=== PATIENT | male | born 1990 | race African-American/Black ===

== ENCOUNTER 2016-09-30 16:36 | Emergency (ER) | payer SELFPAY ==
[~2016-09-30] VITALS: Ht 177.8 cm; Wt 81.8 kg
[~2016-09-30 16:36] MED LIST: HYDR-3533 PO
[2016-09-30 16:37] VITALS: BP 116/72; PULSE 66; RESP 16; TEMP 97.7; O2SAT 99
--- NOTE | 2016-09-30 18:52 | PD ---
HPI Chief Complaint: Flank/Kidney Pain Time Seen by Provider: 18:52 Travel History International Travel<30 days: No Contact w/Intl Traveler<30days: No Traveled to known affect area: No History of Present Illness HPI 26-year-old male resents to the emergency department for evaluation. Patient states that "my kidney stone is acting up." Patient states that he went to [facility] before the new year and was diagnosed with a kidney stone. He is uncertain if it past. He believes that it is still there. Denies nausea. States the pain is significant, sharp, and his right flank. He would also like me to evaluate a cyst on his right buttock that he noticed approximately 2 weeks ago. He states it is painful to sit on. Denies any fever or chills. No other symptoms to report this time. [facility] Social History Alcohol Use: No Tobacco Use: No Allergies-Medications (Allergen,Severity, Reaction): Coded Allergies: No Known Allergies (Unverified , 10/01/16) Reported Meds & Prescriptions Reported Meds & Active Scripts Active Flomax (Tamsulosin HCl) 0.4 Mg Cap 0.4 Mg PO HS Lortab (Hydrocodone-Acetaminophen) 5-325 Mg Tab 1-2 Tab PO Q6H PRN Cipro (Ciprofloxacin HCl) 500 Mg Tab 500 Mg PO BID 5 Days Review of Systems Except as stated in HPI: all other systems reviewed are Neg Physical Exam Narrative GENERAL: Well-nourished male patient, ambulatory and in no acute distress SKIN: Warm and dry. There is a small 2 mm pustular lesion on the right buttocks. It is not indurated. There is no fluctuance. HEAD: Atraumatic. Normocephalic. EYES: Pupils equal and round. No scleral icterus. No injection or drainage. ENT: No nasal bleeding or discharge. Mucous membranes pink and moist. NECK: Trachea midline. No JVD. CARDIOVASCULAR: Regular rate and rhythm. No murmur appreciated. RESPIRATORY: No accessory muscle use. Clear to auscultation. Breath sounds equal bilaterally. GASTROINTESTINAL: Abdomen soft, non-tender, nondistended. Hepatic and splenic margins not palpable. MUSCULOSKELETAL: No obvious deformities. No clubbing. No cyanosis. No edema. NEUROLOGICAL: Awake and alert. No obvious cranial nerve deficits. Motor grossly within normal limits. Normal speech. PSYCHIATRIC: Appropriate mood and affect; insight and judgment normal. Data Data Last Documented VS Vital Signs Date Time Temp Pulse Resp B/P Pulse Ox O2 Delivery O2 Flow Rate FiO2 09/30/16 16:37 97.7 66 16 116/72 99 Room Air Orders Complete Blood Count With Diff (09/30/16 18:48) Basic Metabolic Panel (Bmp) (09/30/16 18:48) Ua Includes Microscopic (09/30/16 18:48) Ct Abd/Pel W/O Iv Contrast (09/30/16 ) Labs Laboratory Tests Test 09/30/16 09/30/16 18:52 18:57 Urine Color YELLOW Urine Turbidity CLEAR Urine pH 5.5 Urine Specific [place] 1.023 Urine Protein TRACE mg/dL Urine Glucose (UA) NEG mg/dL Urine Ketones NEG mg/dL Urine Occult Blood SMALL Urine Nitrite NEG Urine Bilirubin NEG Urine Urobilinogen LESS THAN 2.0 MG/DL Urine Leukocyte Esterase LARGE Urine RBC 36 /hpf Urine WBC 25 /hpf Urine Squamous Epithelial 1 /hpf Cells Urine Mucus MOD /lpf Microscopic Urinalysis Comment White Blood Count 4.8 TH/MM3 Red Blood Count 4.08 MIL/MM3 Hemoglobin 12.9 GM/DL Hematocrit 38.7 % Mean Corpuscular Volume 94.7 FL Mean Corpuscular Hemoglobin 31.7 PG Mean Corpuscular Hemoglobin 33.5 % Concent Red Cell Distribution Width 11.9 % Platelet Count 199 TH/MM3 Mean Platelet Volume 8.5 FL Neutrophils (%) (Auto) 33.8 % Lymphocytes (%) (Auto) 49.8 % Monocytes (%) (Auto) 14.2 % Eosinophils (%) (Auto) 1.9 % Basophils (%) (Auto) 0.3 % Neutrophils # (Auto) 1.6 TH/MM3 Lymphocytes # (Auto) 2.4 TH/MM3 Monocytes # (Auto) 0.7 TH/MM3 Eosinophils # (Auto) 0.1 TH/MM3 Basophils # (Auto) 0.0 TH/MM3 CBC Comment DIFF FINAL Differential Comment Sodium Level 142 MEQ/L Potassium Level 4.3 MEQ/L Chloride Level 108 MEQ/L Carbon Dioxide Level 29.1 MEQ/L Anion Gap 5 MEQ/L Blood Urea Nitrogen 10 MG/DL Creatinine 0.93 MG/DL Estimat Glomerular Filtration 118 ML/MIN Rate Random Glucose 83 MG/DL Calcium Level 8.1 MG/DL MDM Medical Decision Making Medical Screen Exam Complete: Yes Emergency Medical Condition: Yes Medical Record Reviewed: Yes Differential Diagnosis Renal calculi versus UTI versus renal colic versus muscle strain versus narcotic seeking Narrative Course 26-year-old male presents to emergency department for evaluation. Patient appears without distress. His vital signs are stable. He is sitting comfortably in the bed when I come in. Workup was initiated in triage. Condition: Stable Sultana Bonner Sep 30, 2016 18:52 Sultana Bonner Sep 30, 2016 18:52
[2016-09-30 19:25] LABS: AUTOMATED NEUTROPHIL # 1.6 TH/MM3 (1.8-7.7); BASOPHIL % 0.3 % (0.0-2.0); EOSINOPHIL # 0.1 TH/MM3 (0-0.4); EOSINOPHIL % 1.9 % (0.0-4.0); HEMATOCRIT 38.7 % (39.0-51.0); HEMO FLAGS DIFF FINAL; LYMPH % 49.8 % (9.0-44.0); LYMPHOCYTE # 2.4 TH/MM3 (1.0-4.8); MEAN CELL VOLUME 94.7 FL (80.0-100.0); MEAN CORPUSCULAR HEMOGLOBIN 31.7 PG (27.0-34.0); MEAN CORPUSCULAR HGB CONC 33.5 % (32.0-36.0); MONO % 14.2 % (0.0-8.0); NEUT % 33.8 % (16.0-70.0); PLATELET COUNT 199 TH/MM3 (150-450); RED BLOOD COUNT 4.08 MIL/MM3 (4.50-5.90); RED CELL DISTRIBUTION WIDTH 11.9 % (11.6-17.2); WHITE BLOOD COUNT 4.8 TH/MM3 (4.0-11.0)
[2016-09-30 19:34] LABS: BLOOD, URINE SMALL (NEG); GLUCOSE,URINE NEG (NEG); KETONE, URINE NEG (NEG); MUCUS URINE MOD /lpf (OCC); NITRITE,URINE NEG (NEG); PH, URINE 5.5 (5.0-8.5); SQUAMOUS EPITHELIAL CELL URINE 1 /hpf (0-5); URINE COLOR YELLOW (YELLW/STRAW)
[2016-09-30 19:53] LABS: BICARBONATE 29.1 MEQ/L (21.0-32.0); POTASSIUM 4.3 MEQ/L (3.5-5.1)
--- NOTE | 2016-09-30 21:53 | RADRPT ---
EXAM DATE/TIME: 09/30/2016 20:35 [facility] COMPARISON: No previous studies available for comparison. INDICATIONS : Evaluate for calculi. ORAL CONTRAST: No oral contrast ingested. RADIATION DOSE: 9.32 CTDIvol (mGy) MEDICAL HISTORY : None SURGICAL HISTORY : None. ENCOUNTER: Initial ACUITY: 1 day PAIN SCALE: 5/10 LOCATION: Right flank TECHNIQUE: Volumetric scanning of the abdomen and pelvis was performed. Using automated exposure control and ad justment of the mA and/or kV according to patient size, radiation dose was kept as low as reasonably achievable to obtain optimal diagnostic quality images. FINDINGS: Lung bases are clear. No acute findings in the liver, spleen, adrenals or pancreas. There are bilateral renal calculi largest on the left side measuring about 13 mm inferiorly. There is a tiny 2 mm calculus upper pole left kidney and tiny 1 mm calculus lower pole right kidney. No CT fi ndings of obstructive uropathy. No bladder calculi. There is mild constipation. Calcifications are pr esent in the pelvis, probably vascular although I cannot exclude distal ureteral calculus. However, n o hydronephrosis. CONCLUSION: 1. No hydronephrosis or evidence for obstructive uropathy on CT. Calcifications are present in the pe lvis, probably vascular although cannot exclude distal ureteral calculus. Bilateral renal calculi als o present as above. There is mild to moderate constipation, especially on the right. Jaime Quarles MD on September 30, 2016 at 21:46 Board Certified Radiologist. This report was verified electronically.
== END 2016-09-30 21:32 | disposition left against medical advice (07) ==
LOC: NETRI 16:36
DX: R10.31 Right lower quadrant pain (principal); L98.8 Other specified disorders of the skin and subcutaneous tissue
CPT/HCPCS: 74176; 80048; 81001; 85025

== ENCOUNTER 2016-10-01 21:18 | Emergency (ER) | payer SELFPAY ==
[2016-10-01 21:19] VITALS: BP 122/68; PULSE 98; RESP 16; TEMP 97.7; O2SAT 97
[2016-10-01 23:03] LABS: AUTOMATED NEUTROPHIL # 2.2 TH/MM3 (1.8-7.7); BASOPHIL % 0.7 % (0.0-2.0); EOSINOPHIL % 0.7 % (0.0-4.0); HEMATOCRIT 39.2 % (39.0-51.0); HEMO FLAGS DIFF FINAL; LYMPH % 41.1 % (9.0-44.0); LYMPHOCYTE # 2.1 TH/MM3 (1.0-4.8); MEAN CELL VOLUME 95.5 FL (80.0-100.0); MEAN CORPUSCULAR HEMOGLOBIN 32.3 PG (27.0-34.0); MEAN CORPUSCULAR HGB CONC 33.8 % (32.0-36.0); MONO % 13.3 % (0.0-8.0); NEUT % 44.2 % (16.0-70.0); PLATELET COUNT 208 TH/MM3 (150-450); RED BLOOD COUNT 4.11 MIL/MM3 (4.50-5.90); RED CELL DISTRIBUTION WIDTH 11.9 % (11.6-17.2); WHITE BLOOD COUNT 5.1 TH/MM3 (4.0-11.0)
[2016-10-01 23:28] LABS: BICARBONATE 27.8 MEQ/L (21.0-32.0); POTASSIUM 3.6 MEQ/L (3.5-5.1)
[2016-10-02 02:33] LABS: BLOOD, URINE MOD (NEG); COMMENT (UR) CULT NOT INDICATED; CULTURE IF INDICATED CULT NOT INDICATED; GLUCOSE,URINE NEG (NEG); KETONE, URINE NEG (NEG); MUCUS URINE FEW /lpf (OCC); NITRITE,URINE NEG (NEG); SQUAMOUS EPITHELIAL CELL URINE <1 /hpf (0-5); URINE COLOR YELLOW (YELLW/STRAW)
[2016-10-02] MEDS ORDERED: HYDR-3533 PO (03:07)
[2016-10-02] MEDS ORDERED: TAMS5CAP PO (03:07)
[2016-10-02] MEDS ORDERED: CIPR-9 PO (03:07)
--- NOTE | 2016-10-02 03:09 | PD ---
HPI Chief Complaint: Flank/Kidney Pain Time Seen by Provider: 02:16 Travel History International Travel<30 days: No Contact w/Intl Traveler<30days: No Traveled to known affect area: No History of Present Illness HPI 26-year-old male complains of pain in the left flank rate in the left groin. He states his history kidney stones. He has follow-up with a urologist in [place] He reports mild constant pain worse with palpation. He denies fever and vomiting. He was seen here yesterday however left after triage workup was initiated before seeing a doctor. [facility] Past Medical History Medical History: Denies Significant Hx Past Surgical History Surgical History: No Previous Surgery Social History Alcohol Use: Yes (SOCIALLY) Tobacco Use: Yes Substance Use: No Allergies-Medications (Allergen,Severity, Reaction): Coded Allergies: No Known Allergies (Unverified , 10/01/16) Reported Meds & Prescriptions Reported Meds & Active Scripts Active Flomax (Tamsulosin HCl) 0.4 Mg Cap 0.4 Mg PO HS Lortab (Hydrocodone-Acetaminophen) 5-325 Mg Tab 1-2 Tab PO Q6H PRN Cipro (Ciprofloxacin HCl) 500 Mg Tab 500 Mg PO BID 5 Days Review of Systems Except as stated in HPI: all other systems reviewed are Neg Physical Exam Narrative GENERAL: Well-nourished well-developed 26-year-old male in no distress SKIN: Warm and dry. HEAD: Atraumatic. Normocephalic. EYES: Pupils equal and round. No scleral icterus. No injection or drainage. ENT: No nasal bleeding or discharge. Mucous membranes pink and moist. NECK: Trachea midline. No JVD. CARDIOVASCULAR: Regular rate and rhythm. No murmur appreciated. RESPIRATORY: No accessory muscle use. Clear to auscultation. Breath sounds equal bilaterally. GASTROINTESTINAL: Abdomen soft, non-tender, nondistended. Hepatic and splenic margins not palpable. MUSCULOSKELETAL: No obvious deformities. No clubbing. No cyanosis. No edema. NEUROLOGICAL: Awake and alert. No obvious cranial nerve deficits. Motor grossly within normal limits. Normal speech. PSYCHIATRIC: Appropriate mood and affect; insight and judgment normal. Data Data Last Documented VS Vital Signs Date Time Temp Pulse Resp B/P Pulse Ox O2 Delivery O2 Flow Rate FiO2 10/02/16 03:38 98.4 60 18 109/56 100 Room Air Vital signs reviewed Orders Complete Blood Count With Diff (10/01/16 21:48) Basic Metabolic Panel (Bmp) (10/01/16 21:48) Urinalysis - C+S If Indicated (10/01/16 21:48) Labs Laboratory Tests Test 10/01/16 10/02/16 22:30 02:00 White Blood Count 5.1 TH/MM3 Red Blood Count 4.11 MIL/MM3 Hemoglobin 13.3 GM/DL Hematocrit 39.2 % Mean Corpuscular Volume 95.5 FL Mean Corpuscular Hemoglobin 32.3 PG Mean Corpuscular Hemoglobin 33.8 % Concent Red Cell Distribution Width 11.9 % Platelet Count 208 TH/MM3 Mean Platelet Volume 8.7 FL Neutrophils (%) (Auto) 44.2 % Lymphocytes (%) (Auto) 41.1 % Monocytes (%) (Auto) 13.3 % Eosinophils (%) (Auto) 0.7 % Basophils (%) (Auto) 0.7 % Neutrophils # (Auto) 2.2 TH/MM3 Lymphocytes # (Auto) 2.1 TH/MM3 Monocytes # (Auto) 0.7 TH/MM3 Eosinophils # (Auto) 0.0 TH/MM3 Basophils # (Auto) 0.0 TH/MM3 CBC Comment DIFF FINAL Differential Comment Sodium Level 141 MEQ/L Potassium Level 3.6 MEQ/L Chloride Level 107 MEQ/L Carbon Dioxide Level 27.8 MEQ/L Anion Gap 6 MEQ/L Blood Urea Nitrogen 10 MG/DL Creatinine 0.98 MG/DL Estimat Glomerular Filtration 111 ML/MIN Rate Random Glucose 79 MG/DL Calcium Level 8.6 MG/DL Urine Color YELLOW Urine Turbidity CLEAR Urine pH 6.0 Urine Specific [place] 1.019 Urine Protein TRACE mg/dL Urine Glucose (UA) NEG mg/dL Urine Ketones NEG mg/dL Urine Occult Blood MOD Urine Nitrite NEG Urine Bilirubin NEG Urine Urobilinogen LESS THAN 2.0 MG/DL Urine Leukocyte Esterase MOD Urine RBC 100 /hpf Urine WBC 20 /hpf Urine Squamous Epithelial <1 /hpf Cells Urine Mucus FEW /lpf Microscopic Urinalysis Comment CULT NOT INDICATED MDM Medical Decision Making Medical Screen Exam Complete: Yes Emergency Medical Condition: Yes Medical Record Reviewed: Yes Differential Diagnosis Constipation, Gastritis, Acute Cholecystitis, Biliary Colic, Pancreatitis, [place] , Hepatitis, Bowel Obstruction, Cystitis, Mesenteric Ischemia, AAA, Appendicitis , Renal Stone/Hydronephrosis, GERD, perforated viscous Narrative Course CBC & BMP Diagram 10/01/16 22:30 Leukocyte esterase with wbc's and rbc's CT from yesterday shows no hydronephrosis F/u with urology. Prescriptions as below. Diagnosis Primary Impression: Left flank pain Additional Impression: Hematuria Referrals: Irwin Gamboa DO 2 days Additional Instructions: You have a choice when it comes to health care, and we are glad that you chose [facility]. Hopefully, we have met your expectations on today's visit. You are welcome to return to [facility] at any time, as we are committed to meeting the health care needs of our community. Med/Other Pt SpecificInfo: Prescription(s) given Scripts Tamsulosin (Flomax)0.4 Mg Cap0.4 Mg PO HS #5 CAP Ref 0 Prov:Saurabh Mckee MD 10/02/16 Hydrocodone-Acetaminophen (Lortab)5-325 Mg Tab1-2 Tab PO Q6H PRN (PAIN SCALE 6 TO 10) #15 TAB Ref 0 Prov:Saurabh Mckee MD 10/02/16 Ciprofloxacin (Cipro)500 Mg Pur965 Mg PO BID 5 Days Ref 0 Prov:Saurabh Mckee MD 10/02/16 Disposition: 01 DISCHARGE HOME Condition: Stable Saurabh Mckee MD Oct 02, 2016 03:09
[2016-10-02 03:38] VITALS: BP 109/56; PULSE 60; RESP 18; TEMP 98.4; O2SAT 100
== END 2016-10-02 03:44 | disposition home or self-care (01) ==
LOC: NEPC 21:18
DX: R10.32 Left lower quadrant pain (principal); R31.9 Hematuria, unspecified; Z72.0 Tobacco use
CPT/HCPCS: 80048; 81001; 85025; 99284

== ENCOUNTER 2016-12-14 22:12 | Emergency (ER) | payer SELFPAY ==
[~2016-12-14] VITALS: Ht 177.8 cm; Wt 82.0 kg
[~2016-12-14 22:12] MED LIST changes: +CIPR-9 PO; +TAMS5CAP PO
[2016-12-14 22:39] VITALS: BP 114/67; PULSE 75; RESP 14; TEMP 98.4; O2SAT 99
[2016-12-14 22:42] VITALS: BP 114/67; PULSE 92; RESP 14; O2SAT 99
[2016-12-14] MEDS ORDERED: SODIUM CHLOR 0.9% 1000 ML INJ 1,000 ML IV SCH (22:47)
--- NOTE | 2016-12-14 22:50 | PD ---
HPI Chief Complaint: GI Complaint Time Seen by Provider: 22:43 Travel History International Travel<30 days: No Contact w/Intl Traveler<30days: No Traveled to known affect area: No History of Present Illness HPI This is a 26-year-old male who presents to the emergency department with 3 days of "not feeling well", with onset of nausea, vomiting and loose stools starting today, constant, severe, associated with diffuse abdominal pain. He reports he has a history of kidney stones. He does smoke marijuana "as much as he can". He denies alcohol use. PFS Past Medical History Medical History: Denies Significant Hx Past Surgical History Surgical History: No Previous Surgery Social History Alcohol Use: Yes (SOCIALLY) Tobacco Use: Yes Substance Use: Yes (MARIJUANA DAILY) Allergies-Medications (Allergen,Severity, Reaction): Coded Allergies: No Known Allergies (Unverified , 12/14/16) Reported Meds & Prescriptions Reported Meds & Active Scripts Active No Active Prescriptions or Reported Medications Review of Systems Except as stated in HPI: all other systems reviewed are Neg Physical Exam Narrative GENERAL: Uncomfortable appearing, actively vomiting SKIN: Diaphoretic HEAD: Atraumatic. Normocephalic. EYES: Pupils equal and round. No injection or drainage. ENT: Moist mucous membranes NECK: Trachea midline. CARDIOVASCULAR: Regular rate and rhythm. No murmur appreciated. RESPIRATORY: Clear to auscultation. Breath sounds equal bilaterally. GASTROINTESTINAL: Abdomen soft, diffusely tender to palpation with no rebound or guarding. MUSCULOSKELETAL: No obvious deformities. NEUROLOGICAL: Awake and alert. No obvious cranial nerve deficits. Moving all extremities. PSYCHIATRIC: Appropriate mood and affect; insight and judgment normal. Data Data Last Documented VS Vital Signs Date Time Temp Pulse Resp B/P Pulse Ox O2 Delivery O2 Flow Rate FiO2 12/14/16 22:42 92 14 114/67 99 Room Air 12/14/16 22:39 98.4 Orders Complete Blood Count With Diff (12/14/16 22:47) Comprehensive Metabolic Panel (12/14/16 22:47) Lipase (12/14/16 22:47) Urinalysis - C+S If Indicated (12/14/16 22:47) Ct Abd/Pel W Iv Contrast(Rout) (12/14/16 22:47) Iv Access Insert/Monitor (12/14/16 22:47) Ecg Monitoring (12/14/16 22:47) Oximetry (12/14/16 22:47) Ondansetron Inj (Zofran Inj) (12/14/16 23:00) Sodium Chlor 0.9% 1000 Ml Inj (Ns 1000 M (12/14/16 22:47) Sodium Chloride 0.9% Flush (Ns Flush) (12/14/16 23:00) Metoclopramide Inj (Reglan Inj) (12/14/16 23:00) Iohexol 350 Inj (Omnipaque 350 Inj) (12/15/16 00:01) Labs Laboratory Tests Test 12/14/16 23:10 White Blood Count 6.7 TH/MM3 Red Blood Count 4.30 MIL/MM3 Hemoglobin 13.7 GM/DL Hematocrit 40.8 % Mean Corpuscular Volume 94.9 FL Mean Corpuscular Hemoglobin 31.8 PG Mean Corpuscular Hemoglobin 33.5 % Concent Red Cell Distribution Width 11.9 % Platelet Count 213 TH/MM3 Mean Platelet Volume 8.8 FL Neutrophils (%) (Auto) 73.5 % Lymphocytes (%) (Auto) 14.8 % Monocytes (%) (Auto) 11.1 % Eosinophils (%) (Auto) 0.2 % Basophils (%) (Auto) 0.4 % Neutrophils # (Auto) 4.9 TH/MM3 Lymphocytes # (Auto) 1.0 TH/MM3 Monocytes # (Auto) 0.7 TH/MM3 Eosinophils # (Auto) 0.0 TH/MM3 Basophils # (Auto) 0.0 TH/MM3 CBC Comment DIFF FINAL Differential Comment Sodium Level 140 MEQ/L Potassium Level 3.7 MEQ/L Chloride Level 107 MEQ/L Carbon Dioxide Level 24.8 MEQ/L Anion Gap 8 MEQ/L Blood Urea Nitrogen 11 MG/DL Creatinine 0.85 MG/DL Estimat Glomerular Filtration 131 ML/MIN Rate Random Glucose 91 MG/DL Calcium Level 7.7 MG/DL Total Bilirubin 1.2 MG/DL Aspartate Amino Transf 19 U/L (AST/SGOT) Alanine Aminotransferase 20 U/L (ALT/SGPT) Alkaline Phosphatase 63 U/L Total Protein 6.7 GM/DL Albumin 3.7 GM/DL Lipase 84 U/L MDM Medical Decision Making Medical Screen Exam Complete: Yes Emergency Medical Condition: Yes Interpretation(s) Afebrile, no tachycardia, normotensive No leukocytosis Electrolytes are reassuring Lipase is normal CT abdomen and pelvis: Increasing density adjacent to the pancreas Differential Diagnosis Acute pancreatitis, cannabis hyperemesis syndrome, gastroenteritis, cyclic vomiting syndrome Narrative Course This is a 26-year-old male who presents to the emergency department with nausea , vomiting and loose stools. He was placed in a monitor and an IV was established. He was given Zofran, Reglan and IV hydration. Labs were obtained which were all reassuring. CT abdomen and pelvis demonstrates prominence of the pancreas. He was able to drink fluids without difficulty and feels much better on reassessment. Patient will be discharged home with antiemetics. I suspect he has cannabis hyperemesis syndrome but he was informed of the CT findings and asked to follow up with his primary care physician regarding them. Diagnosis Primary Impression: Vomiting Qualified Code: R11.2 - Non-intractable vomiting with nausea, unspecified vomiting type Patient Instructions: General Instructions Additional Instructions: If you develop severe or worsening abdominal pain, fever>100.4, persistent vomiting or inability to eat or drink return to the emergency department immediately. Follow up with your primary care physician in 1-2 days for a check-up. You have very prominent pancreas on your CT scan. This should be followed up by your primary care physician Med/Other Pt SpecificInfo: Prescription(s) given Scripts Ondansetron Odt (Zofran Odt)4 Mg Tab4 Mg SL Q6HR PRN (Nausea/Vomiting) #15 TAB Prov:Maricarmen Chan MD 12/15/16 Disposition: 01 DISCHARGE HOME Condition: Stable Maricarmen Chan MD Dec 14, 2016 22:50
[2016-12-14] MEDS ORDERED: METOCLOPRAMIDE HCL 10 MG/2 ML VIAL IV PUSH ONE (23:00)
[2016-12-14] MEDS ORDERED: SODIUM CHLORIDE 0.9% FLUSH 10 ML FLUSH IV FLUSH PRN (23:00)
[2016-12-14] MEDS ORDERED: ONDANSETRON HCL 4 MG/2 ML VIAL IVP ONE (23:00)
[2016-12-14 23:28] LABS: AUTOMATED NEUTROPHIL # 4.9 TH/MM3 (1.8-7.7); BASOPHIL % 0.4 % (0.0-2.0); EOSINOPHIL % 0.2 % (0.0-4.0); HEMATOCRIT 40.8 % (39.0-51.0); HEMO FLAGS DIFF FINAL; LYMPH % 14.8 % (9.0-44.0); MEAN CELL VOLUME 94.9 FL (80.0-100.0); MEAN CORPUSCULAR HEMOGLOBIN 31.8 PG (27.0-34.0); MEAN CORPUSCULAR HGB CONC 33.5 % (32.0-36.0); MONO % 11.1 % (0.0-8.0); NEUT % 73.5 % (16.0-70.0); PLATELET COUNT 213 TH/MM3 (150-450); RED CELL DISTRIBUTION WIDTH 11.9 % (11.6-17.2); WHITE BLOOD COUNT 6.7 TH/MM3 (4.0-11.0)
[2016-12-14 23:47] LABS: ALT (GPT) 20 U/L (12-78); ANION GAP 8 MEQ/L (5-15); AST (GOT) 19 U/L (15-37); BICARBONATE 24.8 MEQ/L (21.0-32.0); BLOOD UREA NITROGEN 11 MG/DL (7-18); CHLORIDE 107 MEQ/L (98-107); GLOMERULAR FILTRATION RATE 131 ML/MIN (>89); POTASSIUM 3.7 MEQ/L (3.5-5.1); SODIUM (NA) 140 MEQ/L (136-145)
[2016-12-14 23:49] LABS: ALKALINE PHOSPHATASE 63 U/L (45-117); TOTAL BILIRUBIN ADULT 1.2 MG/DL (0.2-1.0)
[2016-12-15] MEDS ORDERED: IOHEXOL 350 MG/ML 10 ML VIAL (for RAD DIAG) IV ONE (00:01)
--- NOTE | 2016-12-15 00:42 | RADRPT ---
EXAM DATE/TIME: 12/14/2016 23:59 [facility] COMPARISON: No previous studies available for comparison. INDICATIONS : Diffuse abdominal pain with nausea and vomiting x3 days. IV CONTRAST: 97 cc Omnipaque 350 (iohexol) IV ORAL CONTRAST: No oral contrast ingested. RADIATION DOSE: 4.54 CTDIvol (mGy) MEDICAL HISTORY : None SURGICAL HISTORY : None. ENCOUNTER: Initial ACUITY: 3 days PAIN SCALE: 6/10 LOCATION: Bilateral abdomen TECHNIQUE: Volumetric scanning of the abdomen and pelvis was performed. Using automated exposure control and ad justment of the mA and/or kV according to patient size, radiation dose was kept as low as reasonably achievable to obtain optimal diagnostic quality images. FINDINGS: LOWER LUNGS: The visualized lower lungs are clear. LIVER: Homogeneous density without lesion. There is no dilation of the biliary tree. No calcified gallston es. SPLEEN: Normal size without lesion. PANCREAS: The pancreas appears prominent and somewhat ill-defined. There does appear to be increased density wi thin the fat seen posterior to the pancreas in the retroperitoneum. No focal fluid collection is seen . KIDNEYS: Normal in size and shape. Several nonobstructing left renal stones measuring up to 1.1 cm are seen. There is a tiny 2-3 mm nonobstructing right renal stone. There is no mass or hydronephrosis. ADRENAL GLANDS: Within normal limits. VASCULAR: There is no aortic aneurysm. BOWEL/MESENTERY: The stomach, small bowel, and colon demonstrate no acute abnormality. There is no free intraperitone al air or fluid. ABDOMINAL WALL: Within normal limits. RETROPERITONEUM: There is no lymphadenopathy. BLADDER: No wall thickening or mass. Calcifications are seen in the pelvis likely related to phleboliths. REPRODUCTIVE: Within normal limits. INGUINAL: There is no lymphadenopathy or hernia. MUSCULOSKELETAL: Within normal limits for patient age. CONCLUSION: 1. The pancreas appears somewhat prominent with increased density in the peritoneal fat adjacent to t he pancreas raising the possibility of pancreatitis. 2. Nonobstructing renal stones seen bilaterally. Onesimo Perez MD on December 15, 2016 at 0:36 Board Certified Radiologist. This report was verified electronically.
[2016-12-15] MEDS ORDERED: ZOFR4TAB3 SL (00:55)
== END 2016-12-15 01:42 | disposition home or self-care (01) ==
LOC: NEPE 22:12
DX: R11.2 Nausea with vomiting, unspecified (principal); F12.10 Cannabis abuse, uncomplicated
CPT/HCPCS: 74177; 80053; 83690; 85025; 96361; 96374; 96375; 99284; J2405; J2765; J7030; Q9967

== ENCOUNTER 2017-02-01 11:20 | Emergency (ER) | payer SELFPAY ==
[~2017-02-01] VITALS: Ht 177.8 cm; Wt 80.0 kg
[~2017-02-01 11:20] MED LIST changes: -CIPR-9 PO; -HYDR-3533 PO; -TAMS5CAP PO; +ZOFR4TAB3 SL
[2017-02-01 11:25] VITALS: BP 125/68; PULSE 87; RESP 17; TEMP 98.3; O2SAT 97
--- NOTE | 2017-02-01 11:35 | PD ---
HPI . sinus headache/sinus pressure for several months Chief Complaint: Headache Time Seen by Provider: 11:35 Travel History International Travel<30 days: No Contact w/Intl Traveler<30days: No Traveled to known affect area: No History of Present Illness HPI 26-year-old male with no significant past medical history here with complaints of possible sinus headache and sinus pressure for the past several months. Patient says that occasionally he experiences severe headaches that cause him to have one episode of vomiting. As the day progresses by 11 AM the headache is gone and he feels better. He thinks that he may be exposed to mold in his house. He has visited the emergency room intermittently and tells me "No one has stopped to take a look into my ears." He denies any fever, chills, nausea, vomiting, loss of vision, diminished strength, numbness or tingling. He is accompanied by his mother. He recently moved from [place] and did not have these issues when he was living there. [facility] Social History Alcohol Use: Yes (SOCIALLY) Tobacco Use: Yes Substance Use: Yes (MARIJUANA DAILY) Allergies-Medications (Allergen,Severity, Reaction): Coded Allergies: No Known Allergies (Unverified , 12/14/16) Reported Meds & Prescriptions Reported Meds & Active Scripts Active Flonase Nasal [place] (Fluticasone Nasal [place]) 50 Mcg/Act [place] 50 Mcg EACH NARE BID Augmentin (Amoxicillin-Clavulanate) 875-125 Mg Tab 1 Tab PO BID 10 Days Zofran Odt (Ondansetron Odt) 4 Mg Tab 4 Mg SL Q6HR PRN Review of Systems General / Constitutional: No: Fever Eyes: No: Visual changes HENT: Positive: Headaches, Congestion Cardiovascular: No: Chest Pain or Discomfort Respiratory: No: Shortness of Breath Gastrointestinal: No: Abdominal Pain Genitourinary: No: Dysuria Musculoskeletal: No: Pain Skin: No Rash Neurologic: No: Weakness Psychiatric: No: Depression Endocrine: No: Polydipsia Hematologic/Lymphatic: No: Easy Bruising Physical Exam Narrative GENERAL: AAO x 3, no acute distress, Well-nourished, well-developed patient. SKIN: Warm and dry. No visible rashes or bruising. HEAD: Normocephalic and atraumatic. EYES: No scleral icterus. No injection or drainage. EOM intact, PERRLA ENT: No nasal drainage noted. Mucous membranes pink. Airway patent. Bilateral TMs with clear effusions, right greater than left. Frontal and maxillary sinus tenderness worse on the right side. Otherwise no oropharynx abnormality. NECK: Supple, trachea midline. No JVD. No lymphadenopathy CARDIOVASCULAR: Regular rate and rhythm without murmurs, gallops, or rubs. RESPIRATORY: Breath sounds equal bilaterally. No accessory muscle use. No rhonchi or rales. GASTROINTESTINAL: Abdomen soft, non-tender, nondistended. Normoactive bowel sounds EXTREMITIES: No cyanosis or edema. NEURO: CN II through XII intact, rattling machine tender strength equal bilaterally. Strength in upper and lower extremities normal. no focal deficits BACK: Nontender without obvious deformity. No CVA tenderness. PSYCH: AAO x 3, normal affect. Data Data Last Documented VS Vital Signs Date Time Temp Pulse Resp B/P Pulse Ox O2 Delivery O2 Flow Rate FiO2 02/01/17 11:36 16 100 Room Air 02/01/17 11:25 98.3 87 125/68 MDM Medical Decision Making Medical Screen Exam Complete: Yes Emergency Medical Condition: Yes Medical Record Reviewed: Yes Differential Diagnosis sinusitis, allergic rhinitis, sinus headaches, migraines Narrative Course This is a 26-year-old male presenting with complaints of headache. He does not have any vomiting today. Upon further discussion he seems to have sinus problems. An examination was done and he does have frontal and maxillary sinus tenderness. His ears are demonstrating b/l clear effusions. His findings are consistent with acute sinusitis and allergic rhinitis. Discussed this with him and explained that often times pollen is a major contributor. Recommend a course of Augmentin and Flonase daily. He will need follow-up with his primary care provider and I recommended [facility]. Discussed this with him and his mother and they are both happy with treatment plan and recommendations. Patient verbalized understanding of instructions, questions were answered, and thanked me for their care. I advised them if their condition worsens, please return to the nearest emergency room for further care. Diagnosis Primary Impression: Acute sinusitis Qualified Code: J01.91 - Acute recurrent sinusitis, unspecified location Additional Impressions: Sinus headache Allergic rhinitis Qualified Code: J30.9 - Allergic rhinitis, unspecified allergic rhinitis trigger, unspecified rhinitis seasonality Referrals: [facility] Patient Instructions: General Instructions, Sinusitis (ED) Additional Instructions: Please return to emergency department if your symptoms return or worsen. Follow up with your primary care provider. Take medications as prescribed. You can try over the counter Zyrtec or Falguni daily. You can use Tylenol or Motrin as needed for headaches. Med/Other Pt SpecificInfo: Prescription(s) given Scripts Fluticasone Nasal [place] (Flonase Nasal [place])50 Mcg/Act Spray50 Mcg EACH NARE BID #1 BOTTLE Ref 0 Prov:Kamila Gr MD 02/01/17 Amoxicillin-Clavulanate (Augmentin)875-125 Mg Tab1 Tab PO BID 10 Days Ref 0 Prov:Kamila Gr MD 02/01/17 Disposition: 01 DISCHARGE HOME Condition: Stable Rayne Erazo February 01, 2017 11:35
[2017-02-01] MEDS ORDERED: FLUT1SPR5 EACH NARE (11:45)
[2017-02-01] MEDS ORDERED: AUGM875T3 PO (11:45)
== END 2017-02-01 11:59 | disposition home or self-care (01) ==
LOC: NEPD 11:20
DX: J01.91 Acute recurrent sinusitis, unspecified (principal); R51 Headache; J30.9 Allergic rhinitis, unspecified; Z72.0 Tobacco use
CPT/HCPCS: 99283

== ENCOUNTER 2017-02-16 07:55 | Emergency (ER) | payer SELFPAY ==
[~2017-02-16] VITALS: Ht 182.9 cm; Wt 72.0 kg
[~2017-02-16 07:55] MED LIST changes: +AUGM875T3 PO; +FLUT1SPR5 EACH NARE
[2017-02-16 07:57] VITALS: BP 129/82; PULSE 78; RESP 15; TEMP 98.2; O2SAT 99
--- NOTE | 2017-02-16 08:55 | PD ---
HPI Chief Complaint: ENT Complaint Time Seen by Provider: 08:54 Travel History International Travel<30 days: No Contact w/Intl Traveler<30days: No Traveled to known affect area: No History of Present Illness HPI 26-year-old male presents emergency Department with complaint of frontal headache that has been bothering him for 2-3 months. He says it alternates sides and this is left-sided at this time. Gradual onset 2-3 months ago. Describes it as a throbbing sensation. Negative history of headaches. Reports photophobia. Reports vomiting in the mornings. Was seen here on February 01 and was given a restriction for antibiotics that he finished on Friday for acute sinusitis. Patient denies nasal congestion; says his sinuses feel dry. Denies fever. Denies focal deficits or weakness. Denies change in vision. Has tried multiple [id number] medications with no relief of symptoms. No known relieving factors. No other modifying factors or associated signs and symptoms. PFSH Past Medical History Medical History: Denies Significant Hx Diminished Hearing: No Immunizations Current: No Tetanus Vaccination: Unknown Influenza Vaccination: No Past Surgical History Surgical History: No Previous Surgery Social History Alcohol Use: Yes (SOCIALLY) Tobacco Use: Yes Substance Use: Yes (MARIJUANA DAILY) Allergies-Medications (Allergen,Severity, Reaction): Coded Allergies: No Known Allergies (Unverified , 02/16/17) Reported Meds & Prescriptions Reported Meds & Active Scripts Active Zofran (Ondansetron HCl) 4 Mg Tab 4 Mg PO Q8HR PRN Ibuprofen 800 Mg Tab 800 Mg PO Q6HR PRN Flonase Nasal [place] (Fluticasone Nasal [place]) 50 Mcg/Act [place] 50 Mcg EACH NARE BID Zofran Odt (Ondansetron Odt) 4 Mg Tab 4 Mg SL Q6HR PRN Review of Systems Except as stated in HPI: all other systems reviewed are Neg Physical Exam Narrative GENERAL: Well-nourished, well-developed patient, in no acute distress; afebrile , nontoxic-appearing; patient laying in a quiet, dark room with ice covered with a washcloth SKIN: Warm and dry. HEAD: Atraumatic. Normocephalic. No facial droop noted. Tongue midline. EYES: Pupils equal and round at 3 mm with brisk reaction. No scleral icterus. No injection or drainage. PERRLA. EOMI. ENT: Mucosa pink and moist. No erythema or exudates. No uvular edema. No uvular , palatal, or tonsillar deviation. Airway patent. EARS: Bilateral pinnae and external canals appear within normal limits. Bilateral tympanic membranes without erythema, dullness or perforation. NECK: Trachea midline. No lymphadenopathy. CARDIOVASCULAR: Regular rate and rhythm. No murmur appreciated. RESPIRATORY: No accessory muscle use. Clear to auscultation. Breath sounds equal bilaterally. GASTROINTESTINAL: Abdomen soft, non-tender, nondistended. Hepatic and splenic margins not palpable. Bowel sounds are active 4 quadrants. MUSCULOSKELETAL: No obvious deformities. No clubbing. No cyanosis. No edema. NEUROLOGICAL: Awake and alert. Oriented 3. No obvious cranial nerve deficits. Motor grossly within normal limits. Normal speech. No ataxia. No mid -line drift. Moves all extremities. 5/5 strength to all extremities. PSYCHIATRIC: Appropriate mood and affect; insight and judgment normal. Data Data Last Documented VS Vital Signs Date Time Temp Pulse Resp B/P Pulse Ox O2 Delivery O2 Flow Rate FiO2 02/16/17 10:07 66 18 118/69 100 02/16/17 07:[address] Brain W/O Iv Contrast(Rout) (02/16/17 ) Ondansetron Odt (Zofran Odt) (02/16/17 09:00) Diphenhydramine (Benadryl) (02/16/17 09:00) Ketorolac Inj (Toradol Inj) (02/16/17 09:30) MDM Medical Decision Making Medical Screen Exam Complete: Yes Emergency Medical Condition: Yes Medical Record Reviewed: Yes Differential Diagnosis Migraine headache, allergic rhinitis, tension headache, headache Narrative Course 26-year-old male presents to emergency department with complaint of continued frontal headache. He was seen on February 01 and diagnosed with sinusitis and just finished his antibiotics on Friday was no change in symptoms. Suspecting patient is having migraine headaches. Neuro exam is unremarkable. Patient does report he has been vomiting every morning. He denies history of headaches. Benadryl, Zofran ordered. CT head ordered. 925: CT head . Toradol ordered. 36: Patient reports improvement in symptoms prior to Toradol administration. Rates headache 5/10 down from a 06/17. Toradol will be administered and the patient will be discharged home. Ibuprofen and Zofran prescribed for home. Instructed patient to follow up with primary care and neurology. [facility] information sheet provided. Patient verbalizes understanding and agreement with treatment plan. Patient is medically cleared and stable for discharge. Discussed reasons to return to the emergency department. Instructed patient to follow up with primary care provider. Patient agrees with treatment plan. The patients vital signs are stable and the patient is stable for outpatient follow-up and treatment. Patient discharged home, stable and in no acute distress. Diagnosis Primary Impression: Headache Qualified Code: R51 - Nonintractable headache, unspecified chronicity pattern , unspecified headache type Referrals: [facility] Primary Care Physician Patient Instructions: General Headache (ED), General Instructions Additional Instructions: Ibuprofen or Tylenol as directed and as needed to reduce headache Get plenty of rest: do not over sleep rest and relax in a dark, quiet room as needed Place an ice pack on the back of her neck to reduce head pain as needed Keep a headache diary of what triggers her headaches and what treatment is most effective Avoid identifiable triggers Avoid smoking, alcohol and caffeine consumption Reduce stress Follow-up with primary care provider within 1-2 days Follow-up with neurology Return immediately to the emergency department with worsening symptoms Med/Other Pt SpecificInfo: Prescription(s) given Scripts Ondansetron (Zofran)4 Mg Tab4 Mg PO Q8HR PRN (NAUSEA OR VOMITING) #15 TAB Ref 0 Prov:Annita Seay 02/16/17 Ibuprofen 800 Mg Qfx179 Mg PO Q6HR PRN (PAIN) #30 TAB Ref 0 Prov:Annita Seay 02/16/17 Disposition: 01 DISCHARGE HOME Condition: Stable Annita Seay Feb 16, 2017 08:55
[2017-02-16] MEDS ORDERED: ONDANSETRON ODT 4 MG TAB PO ONE (09:00)
[2017-02-16] MEDS ORDERED: diphenhydrAMINE HCL 50 MG CAP PO ONE (09:00)
--- NOTE | 2017-02-16 09:19 | RADRPT ---
EXAM DATE/TIME: 02/16/2017 09:03 [facility] COMPARISON: No previous studies available for comparison. INDICATIONS : Sinus pressure and headache. RADIATION DOSE: 40.74 CTDIvol (mGy) Numerous images were repeated secondary to motion. MEDICAL HISTORY : None SURGICAL HISTORY : None. ENCOUNTER: Initial ACUITY: 1 day PAIN SCALE: 5/10 LOCATION: Bilateral facial TECHNIQUE: Multiple contiguous axial images were obtained of the head. Using automated exposure control and adj ustment of the mA and/or kV according to patient size, radiation dose was kept as low as reasonably a chievable to obtain optimal diagnostic quality images. FINDINGS: CEREBRUM: The ventricles are normal for age. No evidence of midline shift, mass lesion, hemorrhage or acute in farction. No extra-axial fluid collections are seen. POSTERIOR FOSSA: The cerebellum and brainstem are intact. The 4th ventricle is midline. The cerebellopontine angle i s unremarkable. EXTRACRANIAL: The visualized portion of the orbits is intact. SKULL: The calvaria is intact. No evidence of skull fracture. CONCLUSION: Negative for acute process. Cedric Johnson MD FACR on February 16, 2017 at 9:17 Board Certified Radiologist. This report was verified electronically.
[2017-02-16] MEDS ORDERED: KETOROLAC TROMETHAMINE 60 MG/2 ML (IM) VIAL IM ONE (09:30)
[2017-02-16] MEDS ORDERED: ZOFR4TAB PO (09:31)
[2017-02-16] MEDS ORDERED: IBUP800T23 PO (09:31)
[2017-02-16 10:07] VITALS: BP 118/69
== END 2017-02-16 10:10 | disposition home or self-care (01) ==
LOC: NEPD 07:55
DX: R51 Headache (principal); R11.10 Vomiting, unspecified; Z72.0 Tobacco use
CPT/HCPCS: 70450; 96372; 99285; J1885; Q0163

== ENCOUNTER 2017-07-17 17:31 | Emergency (ER) | payer SELFPAY ==
[~2017-07-17 17:31] MED LIST changes: -AUGM875T3 PO; +IBUP1TAB7 PO; +ZOFR4TAB PO
[2017-07-17 17:33] VITALS: BP 124/67; PULSE 75; RESP 12; TEMP 98.6; O2SAT 98
[2017-07-17] MEDS ORDERED: BACT800T5 PO (20:58)
[2017-07-17] MEDS ORDERED: CEPH-460 PO (20:58)
--- NOTE | 2017-07-17 20:59 | PD ---
HPI Chief Complaint: Skin Problem Time Seen by Provider: 20:45 Travel History International Travel<30 days: No Contact w/Intl Traveler<30days: No Traveled to known affect area: No History of Present Illness HPI 27-year-old black male presents ly apartment with complaints of infection to his right lower leg after being bitten by ants 3 days ago. He states that he is an area behind his right calf which has become increasing painful and swollen. Symptoms are [id number]. He has not had a tetanus shot over 5 years. No fever chills. Positive pus drainage. PFSH Past Medical History Medical History: Denies Significant Hx Diminished Hearing: No Immunizations Current: No Tetanus Vaccination: > 5 Years Past Surgical History Surgical History: No Previous Surgery Social History Alcohol Use: Yes (SOCIALLY) Tobacco Use: Yes Substance Use: Yes (MARIJUANA DAILY) Allergies-Medications (Allergen,Severity, Reaction): Coded Allergies: No Known Allergies (Unverified Adverse Reaction, Unknown, 07/17/17) Reported Meds & Prescriptions Reported Meds & Active Scripts Active Keflex (Cephalexin) 500 Mg Capsule 500 Mg PO Q6H 7 Days Bactrim DS (Sulfamethoxazole-Trimethoprim) 800-160 Mg Tab 1 Tab PO BID Zofran (Ondansetron HCl) 4 Mg Tab 4 Mg PO Q8HR PRN Ibuprofen 800 Mg Tab 800 Mg PO Q6HR PRN Flonase Nasal [place] (Fluticasone Nasal [place]) 50 Mcg/Act [place] 50 Mcg EACH NARE BID Zofran Odt (Ondansetron Odt) 4 Mg Tab 4 Mg SL Q6HR PRN Review of Systems General / Constitutional: No: Fever Musculoskeletal: Positive: Edema, Pain Skin: Positive Rash, Positive Lumps Physical Exam Narrative GENERAL: This is a well-nourished, well-developed patient, in no apparent distress. SKIN: No rashes, ecchymoses or lesions. Warm and dry. HEAD: Atraumatic. Normocephalic. EYES: PERRL, EOMI, no discharge or injection. No scleral icterus. EARS: Clear NOSE: Nasal turbinates appear normal. THROAT: Mucosa pink and moist. Airway patent. NECK: Trachea midline. supple, moves head freely. LUNGS: Clear to auscultation. CV: Regular in rhythm. ABDOMEN: Soft nontender. EXT: No clubbing cyanosis. Examination of right lower extremity reveals mild erythema and edema to the right lower posterior calf where there is a central open draining abscess measuring 2 x 2 centimeters. There is indurated but not fluctuant. Positive pus discharge. Patient also has a few scattered pustular lesion from fire ant bites but they do not appear to be secondarily infected Data Data Last Documented VS Vital Signs Date Time Temp Pulse Resp B/P (MAP) Pulse Ox O2 Delivery O2 Flow Rate FiO2 07/17/17 17:33 98.6 75 12 124/67 (86) 98 Orders Orders Tetanus/Diphtheria Tox Adult (Tetanus/Di (07/17/17 21:00) Sulfamet-Trimeth Ds 800-160 Mg (Bactrim (07/17/17 21:00) Cephalexin (Keflex) (07/17/17 21:00) MDM Medical Decision Making Medical Screen Exam Complete: Yes Emergency Medical Condition: Yes Medical Record Reviewed: Yes Differential Diagnosis MDM: High Differential diagnoses: Abscess, folliculitis, cellulitis, lymphangitis, abrasion, contact dermatitis Narrative Course Patient is given Bactrim DS and Keflex 500 mg by mouth. This is right lower leg abscess Diagnosis Primary Impression: Abscess of right lower leg Patient Instructions: General Instructions Additional Instructions: Rest. Elevation. keep clean and dry. Warm compresses Daily wound care with soap, water and Neosporin. Three Advil every 6 hours. Bactrim DS and Keflex Follow-up with a primary care doctor in one week. Return to the ER for any problems. Med/Other Pt SpecificInfo: Prescription(s) given Scripts Cephalexin (Keflex) 500 Mg Capsule 500 MG PO Q6H for Infection for 7 Days, #28 CAP 0 Refills Prov: Renay Irving DO 07/17/17 Sulfamethoxazole-Trimethoprim (Bactrim DS) 800-160 Mg Tab 1 TAB PO BID for Infection, #20 TAB 0 Refills Prov: Renay Irving DO 07/17/17 Disposition: 01 DISCHARGE HOME Condition: Stable Jaime Valentin Jul 17, 2017 20:59
[2017-07-17] MEDS ORDERED: SULFAMETHOXAZOLE-TRIMETHOPRIM DS 800-160 MG TAB PO ONE (21:00)
[2017-07-17] MEDS ORDERED: TETANUS/DIPHTHERIA TOXOID ADULT 0.5 ML VIAL IM ONE (21:00)
[2017-07-17] MEDS ORDERED: CEPHALEXIN MONOHYDRATE 500 MG CAP PO ONE (21:00)
== END 2017-07-17 21:29 | disposition home or self-care (01) ==
LOC: NEPK 17:31
DX: L02.415 Cutaneous abscess of right lower limb (principal); Z72.0 Tobacco use; Z79.899 Other long term (current) drug therapy; Z23 Encounter for immunization
CPT/HCPCS: 90471; 90714

== ENCOUNTER 2017-09-05 02:17 | Emergency (ER) | payer SELFPAY ==
[~2017-09-05] VITALS: Ht 170.2 cm; Wt 72.0 kg
[~2017-09-05 02:17] MED LIST changes: +BACT800T5 PO; +CEPH-460 PO
[2017-09-05 02:18] VITALS: BP 134/85; PULSE 85; RESP 16; TEMP 99.7; O2SAT 99
[2017-09-05] MEDS ORDERED: KETOROLAC TROMETHAMINE 30 MG/ML (IVP) VIAL IV PUSH ONE (02:45)
[2017-09-05] MEDS ORDERED: ONDANSETRON HCL 4 MG/2 ML VIAL IV PUSH ONE (02:45)
[2017-09-05] MEDS ORDERED: SODIUM CHLOR 0.9% 1000 ML INJ 1,000 ML IV ONE (02:45)
--- NOTE | 2017-09-05 02:50 | PD ---
HPI Chief Complaint: GI Complaint Time Seen by Provider: 02:40 Travel History International Travel<30 days: No Contact w/Intl Traveler<30days: No Traveled to known affect area: No History of Present Illness HPI 27-year-old male complains of fever, headache, body ache, coughing congestion, nausea vomiting and abdominal pain. Patient states that symptoms started 3 days ago and got worse tonight. Patient states that headache aching headache diffuse over the head. Patient denies any visual change. Patient denies any neck pain. Patient states the cough is persistent mostly dry cough. Patient complains of chest wall pain. Patient denies any shortness of breath. Patient states that he has diffuse overall cramping tonight with nausea vomiting tonight. Patient denies any dysuria or frequency. Patient complains of body ache. 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 PFSH Past Medical History Diminished Hearing: No Immunizations Current: No Influenza Vaccination: No Past Surgical History Surgical History: No Previous Surgery Social History Alcohol Use: Yes (SOCIALLY) Tobacco Use: Yes Substance Use: Yes (MARIJUANA DAILY) Allergies-Medications (Allergen,Severity, Reaction): Coded Allergies: No Known Allergies (Unverified Adverse Reaction, Unknown, 09/05/17) Reported Meds & Prescriptions Reported Meds & Active Scripts Active Ibuprofen 800 Mg Tab 800 Mg PO Q6HR PRN Flonase Nasal [place] (Fluticasone Nasal [place]) 50 Mcg/Act [place] 50 Mcg EACH NARE BID Review of Systems General / Constitutional: Positive: Fever Eyes: No: Visual changes HENT: Positive: Headaches Cardiovascular: No: Chest Pain or Discomfort Respiratory: Positive: Cough, No: Shortness of Breath Gastrointestinal: Positive: Nausea, Vomiting, Abdominal Pain Genitourinary: No: Dysuria Musculoskeletal: No: Pain Skin: No Rash Neurologic: No: Weakness Psychiatric: No: Depression Endocrine: No: Polydipsia Hematologic/Lymphatic: No: Easy Bruising Physical Exam Narrative GENERAL: Well-nourished, well-developed patient. SKIN: Focused skin assessment warm/dry. HEAD: Normocephalic. EYES: No scleral icterus. No injection or drainage. NECK: Supple, trachea midline. No JVD or lymphadenopathy. No meningismus CARDIOVASCULAR: Regular rate and rhythm without murmurs, gallops, or rubs. RESPIRATORY: Breath sounds equal bilaterally. No accessory muscle use. GASTROINTESTINAL: Abdomen soft, nondistended. Patient has mild to moderate diffuse tenderness over the abdomen. No rebound tenderness. No mass. MUSCULOSKELETAL: No cyanosis, or edema. BACK: Nontender without obvious deformity. No CVA tenderness. Data Data Last Documented VS Vital Signs Date Time Temp Pulse Resp B/P (MAP) Pulse Ox O2 Delivery O2 Flow Rate FiO2 09/05/17 02:18 99.7 85 16 134/85 (101) 99 Room Air Orders Orders Sodium Chlor 0.9% 1000 Ml Inj (Ns 1000 M (09/05/17 02:45) Ketorolac Inj (Toradol Inj) (09/05/17 02:45) Ondansetron Inj (Zofran Inj) (09/05/17 02:45) Complete Blood Count With Diff (09/05/17 02:44) Comprehensive Metabolic Panel (09/05/17 02:44) Lipase (09/05/17 02:44) Influenzae A/B Antigen (09/05/17 02:44) Chest, Single Ap (09/05/17 02:44) Iv Access Insert/Monitor (09/05/17 02:44) Ecg Monitoring (09/05/17 02:44) Oximetry (09/05/17 02:44) Labs Laboratory Tests Test 09/05/17 02:30 White Blood Count 6.2 TH/MM3 Red Blood Count 4.29 MIL/MM3 Hemoglobin 13.9 GM/DL Hematocrit 41.1 % Mean Corpuscular Volume 95.9 FL Mean Corpuscular Hemoglobin 32.3 PG Mean Corpuscular Hemoglobin Concent 33.7 % Red Cell Distribution Width 12.1 % Platelet Count 197 TH/MM3 Mean Platelet Volume 8.5 FL Neutrophils (%) (Auto) 70.7 % Lymphocytes (%) (Auto) 14.0 % Monocytes (%) (Auto) 13.5 % Eosinophils (%) (Auto) 0.4 % Basophils (%) (Auto) 1.4 % Neutrophils # (Auto) 4.4 TH/MM3 Lymphocytes # (Auto) 0.9 TH/MM3 Monocytes # (Auto) 0.8 TH/MM3 Eosinophils # (Auto) 0.0 TH/MM3 Basophils # (Auto) 0.1 TH/MM3 CBC Comment DIFF FINAL Differential Comment Blood Urea Nitrogen 8 MG/DL Creatinine 0.96 MG/DL Random Glucose 98 MG/DL Total Protein 7.2 GM/DL Albumin 3.8 GM/DL Calcium Level 8.6 MG/DL Alkaline Phosphatase 62 U/L Aspartate Amino Transf (AST/SGOT) 20 U/L Alanine Aminotransferase (ALT/SGPT) 17 U/L Total Bilirubin 0.5 MG/DL Sodium Level 143 MEQ/L Potassium Level 3.7 MEQ/L Chloride Level 106 MEQ/L Carbon Dioxide Level 25.7 MEQ/L Anion Gap 11 MEQ/L Estimat Glomerular Filtration Rate 113 ML/MIN Lipase 97 U/L [facility] Medical Decision Making Medical Screen Exam Complete: Yes Emergency Medical Condition: Yes Interpretation(s) 3:36 AM. Chest x-ray shows no acute process. CBC within normal limit. 4:09 AM. CMP within normal limit. Influenza AB antigen negative. Differential Diagnosis Differential diagnosis including viral syndrome, migraine headache, tension headache, cluster headache, encephalitis, pneumonia, bronchitis, gastroenteritis , dehydration, electrolyte imbalance. Narrative Course 27-year-old male with headache, coughing congestion, abdominal pain, nausea vomiting and body ache. Normal saline solution 1 L IV bolus. Toradol 30 mg IV. Zofran 4 mg IV. Diagnosis Primary Impression: Viral syndrome Patient Instructions: General Instructions Additional Instructions: Clear fluid for 25 hours and advance as tolerated. Tylenol or ibuprofen for fever aching pain. Zofran as needed for nausea vomiting. Encouraged by mouth fluid. Follow-up with personal physician. Return if persistent problem or worse. Med/Other Pt SpecificInfo: Prescription(s) given Scripts Ondansetron Odt (Zofran Odt) 4 Mg Tab 4 MG SL Q6HR Y for Nausea/Vomiting, #10 TAB 0 Refills Prov: Alfonzo Hodgson MD 09/05/17 Disposition: 01 DISCHARGE HOME Condition: Stable Alfonzo Hodgson MD Sep 05, 2017 02:50
[2017-09-05 03:24] LABS: AUTOMATED NEUTROPHIL # 4.4 TH/MM3 (1.8-7.7); BASOPHIL # 0.1 TH/MM3 (0-0.2); BASOPHIL % 1.4 % (0.0-2.0); EOSINOPHIL % 0.4 % (0.0-4.0); HEMATOCRIT 41.1 % (39.0-51.0); HEMOGLOBIN 13.9 GM/DL (13.0-17.0); LYMPHOCYTE # 0.9 TH/MM3 (1.0-4.8); MEAN CELL VOLUME 95.9 FL (80.0-100.0); MEAN CORPUSCULAR HEMOGLOBIN 32.3 PG (27.0-34.0); MEAN CORPUSCULAR HGB CONC 33.7 % (32.0-36.0); MEAN PLATELET VOLUME 8.5 FL (7.0-11.0); MONO % 13.5 % (0.0-8.0); MONOCYTE # 0.8 TH/MM3 (0-0.9); NEUT % 70.7 % (16.0-70.0); PLATELET COUNT 197 TH/MM3 (150-450); RED BLOOD COUNT 4.29 MIL/MM3 (4.50-5.90); RED CELL DISTRIBUTION WIDTH 12.1 % (11.6-17.2); WHITE BLOOD COUNT 6.2 TH/MM3 (4.0-11.0)
--- NOTE | 2017-09-05 03:30 | RADRPT ---
EXAM DATE/TIME: 09/05/2017 02:52 [facility] COMPARISON: No previous studies available for comparison. INDICATIONS : Cough, cold, and flu symptoms with a fever. MEDICAL HISTORY : None. SURGICAL HISTORY : None. ENCOUNTER: Initial ACUITY: 3 days PAIN SCORE: 0/10 LOCATION: Bilateral chest FINDINGS: Single AP view of the chest. The lungs are clear. Mildly prominent cardiac silhouette.. No evidence o f pleural effusion or pneumothorax. CONCLUSION: Mildly prominent cardiac silhouette. No other acute cardiopulmonary disease ident ified. Waqas Hawthorne MD on September 05, 2017 at 3:28 Board Certified Radiologist. This report was verified electronically.
[2017-09-05 03:49] LABS: ALBUMIN 3.8 GM/DL (3.4-5.0); ALT (GPT) 17 U/L (12-78); AST (GOT) 20 U/L (15-37); BICARBONATE 25.7 MEQ/L (21.0-32.0); BLOOD UREA NITROGEN 8 MG/DL (7-18); CALCIUM 8.6 MG/DL (8.5-10.1); CHLORIDE 106 MEQ/L (98-107); CREATININE 0.96 MG/DL (0.60-1.30); GLOMERULAR FILTRATION RATE 113 ML/MIN (>89); GLUCOSE,RANDOM 98 MG/DL (74-106); LIPASE 97 U/L (73-393); SODIUM (NA) 143 MEQ/L (136-145)
[2017-09-05 03:52] LABS: ALKALINE PHOSPHATASE 62 U/L (45-117); TOTAL BILIRUBIN ADULT 0.5 MG/DL (0.2-1.0); TOTAL PROTEIN 7.2 GM/DL (6.4-8.2)
[2017-09-05] MEDS ORDERED: ZOFR4TAB3 SL (04:20)
[2017-09-05 04:40] VITALS: TEMP 99.2
== END 2017-09-05 04:41 | disposition home or self-care (01) ==
LOC: NEPC 02:17
DX: B34.9 Viral infection, unspecified (principal); Z72.0 Tobacco use
CPT/HCPCS: 71010; 80053; 83690; 85025; 87804; 96374; 96375; 99284; J1885; J2405; J7030

== ENCOUNTER 2018-01-04 11:59 | Inpatient (IN) | payer SELFPAY ==
[~2018-01-04] VITALS: Ht 182.9 cm; Wt 68.5 kg
[~2018-01-04 11:59] MED LIST changes: -BACT800T5 PO; -CEPH-460 PO; -ZOFR4TAB PO
[2018-01-04 12:04] VITALS: BP 121/81; PULSE 69; RESP 18; TEMP 97.6; O2SAT 99
[2018-01-04] MEDS ORDERED: SODIUM CHLOR 0.9% 1000 ML INJ 1,000 ML IV SCH (12:39)
--- NOTE | 2018-01-04 12:42 | PD ---
HPI Chief Complaint: GI Complaint Time Seen by Provider: 12:19 Travel History International Travel<30 days: No Contact w/Intl Traveler<30days: No Traveled to known affect area: No History of Present Illness HPI This patient complains of nausea vomiting abdominal pain. Duration 2 days. Severity is moderate. Pain is rather diffuse. He has had a similar spell like this once in his past. He denies chronic disease or illicit drug use. He is a periodic alcohol drinker. No alleviating factors. No exacerbating factors. PFSH Past Medical History Medical History: Denies Significant Hx Diminished Hearing: No Immunizations Current: No Tetanus Vaccination: < 5 Years Past Surgical History Surgical History: No Previous Surgery Social History Alcohol Use: Yes (SOCIALLY) Tobacco Use: Yes Substance Use: Yes (MARIJUANA DAILY) Allergies-Medications (Allergen,Severity, Reaction): Coded Allergies: No Known Allergies (Unverified Adverse Reaction, Unknown, 01/04/18) Reported Meds & Prescriptions Reported Meds & Active Scripts Active Review of Systems General / Constitutional: No: Fever Eyes: No: Visual changes HENT: No: Headaches Cardiovascular: No: Chest Pain or Discomfort Respiratory: No: Shortness of Breath Gastrointestinal: Positive: Nausea, Vomiting, Abdominal Pain Genitourinary: No: Dysuria Musculoskeletal: No: Pain Skin: No Rash Neurologic: No: Weakness Psychiatric: No: Depression Endocrine: No: Polydipsia Hematologic/Lymphatic: No: Easy Bruising Physical Exam Narrative GENERAL: Well-nourished, well-developed patient in no apparent distress. SKIN: Focused skin assessment reveals no rash and nodules. Skin is Warm and dry. HEAD: Atraumatic. Normocephalic. EYES: Pupils equal and round. No scleral icterus. No injection or drainage. ENT: No nasal bleeding or discharge. Mucous membranes pink and moist. NECK: Trachea midline. No JVD. CARDIOVASCULAR: Regular rate and rhythm. No murmur appreciated. RESPIRATORY: No accessory muscle use. Clear to auscultation. Breath sounds equal bilaterally. GASTROINTESTINAL: Abdomen soft, diffuse tenderness without rebound or guarding , nondistended. Hepatic and splenic margins not palpable. MUSCULOSKELETAL: No obvious deformities. No clubbing. No cyanosis. No edema. NEUROLOGICAL: Awake and alert. No obvious cranial nerve deficits. Motor grossly within normal limits. Normal speech. PSYCHIATRIC: Appropriate mood and affect; insight and judgment normal. Data Data Last Documented VS Vital Signs Date Time Temp Pulse Resp B/P (MAP) Pulse Ox O2 Delivery O2 Flow Rate FiO2 01/04/18 12:04 97.6 69 18 121/81 (94) 99 Orders Orders Complete Blood Count With Diff (01/04/18 12:39) Comprehensive Metabolic Panel (01/04/18 12:39) Lipase (01/04/18 12:39) Ct Abd/Pel W Iv Contrast(Rout) (01/04/18 12:39) Iv Access Insert/Monitor (01/04/18 12:39) NPO (01/04/18 12:39) Ondansetron Inj (Zofran Inj) (01/04/18 12:45) Sodium Chlor 0.9% 1000 Ml Inj (Ns 1000 M (01/04/18 12:39) Sodium Chloride 0.9% Flush (Ns Flush) (01/04/18 12:45) Iohexol 350 Inj (Omnipaque 350 Inj) (01/04/18 15:08) Ondansetron Inj (Zofran Inj) (01/04/18 16:30) Hydromorphone Pf Inj (Dilaudid Pf Inj) (01/04/18 16:30) Urinalysis - C+S If Indicated (01/04/18 16:26) Ciprofloxacin 400 Mg Premix (Cipro 400 M (01/04/18 16:30) Admit Order (Ed Use Only) (01/04/18 16:40) Labs Laboratory Tests Test 01/04/18 13:30 White Blood Count 7.4 TH/MM3 Red Blood Count 4.73 MIL/MM3 Hemoglobin 14.8 GM/DL Hematocrit 44.4 % Mean Corpuscular Volume 94.1 FL Mean Corpuscular Hemoglobin 31.4 PG Mean Corpuscular Hemoglobin Concent 33.4 % Red Cell Distribution Width 12.2 % Platelet Count 221 TH/MM3 Mean Platelet Volume 9.1 FL Neutrophils (%) (Auto) 88.2 % Lymphocytes (%) (Auto) 6.3 % Monocytes (%) (Auto) 5.2 % Eosinophils (%) (Auto) 0.0 % Basophils (%) (Auto) 0.3 % Neutrophils # (Auto) 6.5 TH/MM3 Lymphocytes # (Auto) 0.5 TH/MM3 Monocytes # (Auto) 0.4 TH/MM3 Eosinophils # (Auto) 0.0 TH/MM3 Basophils # (Auto) 0.0 TH/MM3 CBC Comment DIFF FINAL Differential Comment Blood Urea Nitrogen 10 MG/DL Creatinine 1.01 MG/DL Random Glucose 119 MG/DL Total Protein 8.3 GM/DL Albumin 4.4 GM/DL Calcium Level 9.4 MG/DL Alkaline Phosphatase 76 U/L Aspartate Amino Transf (AST/SGOT) 31 U/L Alanine Aminotransferase (ALT/SGPT) 43 U/L Total Bilirubin 0.6 MG/DL Sodium Level 136 MEQ/L Potassium Level 4.2 MEQ/L Chloride Level 103 MEQ/L Carbon Dioxide Level 23.6 MEQ/L Anion Gap 9 MEQ/L Estimat Glomerular Filtration Rate 107 ML/MIN Lipase 53 U/L MDM Medical Decision Making Medical Screen Exam Complete: Yes Emergency Medical Condition: Yes Medical Record Reviewed: Yes Differential Diagnosis Colitis, pancreatitis, ileus Narrative Course I have reviewed the patient's electronic medical record. Reviewed his last CAT scan which suggest the possibility of pancreatitis but this was not definitive Labs and CT ordered I gave him IV Zofran and IV fluid normal saline 1 L I reviewed the workup. He has a large left-sided kidney stone with severe hydronephrosis. This would explain his left-sided abdominal and flank pain with intractable vomiting. He is still vomiting and having a lot of pain. He will be admitted for intractable vomiting and pain from kidney stone. I spoke with urologist on- call who will be a professional employer consultant. I spoke with the residents will admit I gave a dose of antibiotics at urologist request. I have ordered urinalysis which is pending. Creatinine is normal Diagnosis Primary Impression: Intractable abdominal pain Additional Impressions: Intractable vomiting with nausea Qualified Codes: R11.2 - Nausea with vomiting, unspecified Kidney stone on left side Hydronephrosis due to obstruction of ureter Admitting Information Admitting Physician Requests: Admit Mikel Salmon MD Jan 04, 2018 12:42
[2018-01-04] MEDS ORDERED: ONDANSETRON HCL 4 MG/2 ML VIAL IVP ONE (12:45)
[2018-01-04] MEDS ORDERED: SODIUM CHLORIDE 0.9% FLUSH 10 ML FLUSH IV FLUSH PRN ×2 (12:45→17:00)
[2018-01-04 14:08] LABS: AUTOMATED NEUTROPHIL # 6.5 TH/MM3 (1.8-7.7); BASOPHIL % 0.3 % (0.0-2.0); HEMATOCRIT 44.4 % (39.0-51.0); HEMOGLOBIN 14.8 GM/DL (13.0-17.0); LYMPH % 6.3 % (9.0-44.0); LYMPHOCYTE # 0.5 TH/MM3 (1.0-4.8); MEAN CELL VOLUME 94.1 FL (80.0-100.0); MEAN CORPUSCULAR HEMOGLOBIN 31.4 PG (27.0-34.0); MEAN CORPUSCULAR HGB CONC 33.4 % (32.0-36.0); MEAN PLATELET VOLUME 9.1 FL (7.0-11.0); MONO % 5.2 % (0.0-8.0); MONOCYTE # 0.4 TH/MM3 (0-0.9); NEUT % 88.2 % (16.0-70.0); PLATELET COUNT 221 TH/MM3 (150-450); RED BLOOD COUNT 4.73 MIL/MM3 (4.50-5.90); RED CELL DISTRIBUTION WIDTH 12.2 % (11.6-17.2); WHITE BLOOD COUNT 7.4 TH/MM3 (4.0-11.0)
[2018-01-04 14:17] LABS: ALBUMIN 4.4 GM/DL (3.4-5.0); AST (GOT) 31 U/L (15-37); BICARBONATE 23.6 MEQ/L (21.0-32.0); BLOOD UREA NITROGEN 10 MG/DL (7-18); CALCIUM 9.4 MG/DL (8.5-10.1); CHLORIDE 103 MEQ/L (98-107); CREATININE 1.01 MG/DL (0.60-1.30); GLOMERULAR FILTRATION RATE 107 ML/MIN (>89); GLUCOSE,RANDOM 119 MG/DL (74-106); SODIUM (NA) 136 MEQ/L (136-145)
[2018-01-04 14:18] LABS: ALT (GPT) 43 U/L (12-78)
[2018-01-04 14:20] LABS: ALKALINE PHOSPHATASE 76 U/L (45-117); TOTAL BILIRUBIN ADULT 0.6 MG/DL (0.2-1.0); TOTAL PROTEIN 8.3 GM/DL (6.4-8.2)
[2018-01-04] MEDS ORDERED: IOHEXOL 350 MG/ML 10 ML VIAL (for RAD DIAG) IVCONTRAST ONE (15:08)
--- NOTE | 2018-01-04 15:54 | RADRPT ---
EXAM DATE/TIME: 01/04/2018 14:41 [facility] COMPARISON: CT ABDOMEN & PELVIS W CONTRAST, December 14, 2016, 23:59. INDICATIONS : Abdominal pain, vomiting. IV CONTRAST: 96 cc Omnipaque 350 (iohexol) IV ORAL CONTRAST: No oral contrast ingested. RADIATION DOSE: 6.64 CTDIvol (mGy) MEDICAL HISTORY : None SURGICAL HISTORY : None. ENCOUNTER: Initial ACUITY: 1 day PAIN SCALE: 5/10 LOCATION: Abdomen TECHNIQUE: Volumetric scanning of the abdomen and pelvis was performed. Using automated exposure control and ad justment of the mA and/or kV according to patient size, radiation dose was kept as low as reasonably achievable to obtain optimal diagnostic quality images. DICOM format image data is available electro nically for review and comparison. FINDINGS: LOWER LUNGS: The visualized lower lungs are clear. LIVER: Homogeneous density without lesion. There is no dilation of the biliary tree. No calcified gallston es. SPLEEN: Normal size without lesion. PANCREAS: Within normal limits. KIDNEYS: There is a 1.3 cm stone in the left proximal ureter just beyond the UPJ. There is moderate to severe dilatation of the left collecting system. There is a 1.1 cm nonobstructing left renal stones in the i nferior left collecting system. There is a tiny 2 mm nonobstructing right renal stone at the inferior right collecting system. ADRENAL GLANDS: Within normal limits. VASCULAR: There is no aortic aneurysm. BOWEL/MESENTERY: The stomach, small bowel, and colon demonstrate no acute abnormality. There is no free intraperitone al air or fluid. ABDOMINAL WALL: Within normal limits. RETROPERITONEUM: There is no lymphadenopathy. BLADDER: No wall thickening or mass. There are numerous calcifications seen in the pelvis likely related to ph leboliths. A distal ureteral stone is not clearly identified. REPRODUCTIVE: Within normal limits. INGUINAL: There is no lymphadenopathy or hernia. MUSCULOSKELETAL: Within normal limits for patient age. CONCLUSION: 1. 1.3 cm obstructing stone in the left proximal ureter with moderate to severe dilatation of the lef t collecting system. 2. Bilateral nonobstructing renal stones in the inferior collecting systems being larger on the left. Onesimo Perez MD on January 04, 2018 at 15:46 Board Certified Radiologist. This report was verified electronically.
[2018-01-04] MEDS ORDERED: ONDANSETRON HCL 4 MG/2 ML VIAL IV ONE (16:30)
[2018-01-04] MEDS ORDERED: CIPROFLOXACIN 400 MG PREMIX 200 ML IV ONE (16:30)
[2018-01-04] MEDS ORDERED: HYDROmorphone HCL PF 2 MG/ML VIAL IVS ONE (16:30)
[2018-01-04] MEDS ORDERED: KETOROLAC TROMETHAMINE 30 MG/ML (IVP) VIAL IV PUSH PRN (17:00)
[2018-01-04] MEDS ORDERED: ACETAMINOPHEN 325 MG TAB PO PRN (17:00)
[2018-01-04] MEDS ORDERED: NALOXONE HCL 0.4 MG/ML AMP IV PUSH PRN (17:00)
[2018-01-04] MEDS ORDERED: MORPHINE SULFATE 2 MG/ML SYRINGE IV PUSH PRN (17:00)
[2018-01-04] MEDS ORDERED: ONDANSETRON HCL 4 MG/2 ML VIAL IVP PRN (17:00)
--- NOTE | 2018-01-04 17:01 | HHI.HP ---
HPI Service Family Medicine Primary Care Physician No Primary Care Physician Admission Diagnosis intract vomiting and pain from kidney stone, severe hydronephrosis Diagnoses: International Travel<30 Days: No Contact w/Intl Traveler<30days: No Known Affected Area: No History of Present Illness 27 yo M presenting to ED with intractable nausea and vomiting. He states he starting having body aches, chills on day prior to admission. At 0330 day of admission starting having nausea and vomiting >20 times. Describes the vomitus as black. Also complaining of lower abdominal and low back pain. On day prior to admission he was working outdoors and drinking beer (6 beers total). Has a history of renal stones, last had one 4 years ago and did not undergo surgery at that time. Also endorses diarrhea for last 3 days. Denies hematuria, dysuria , foul odor to urine. Review of Systems Constitutional: COMPLAINS OF: Fever, Chills, DENIES: Weight gain, Weight loss Eyes: DENIES: Blurred vision Ears, nose, mouth, throat: DENIES: Throat pain, Running Nose Respiratory: DENIES: Cough, Wheezing, Hemoptysis Cardiovascular: DENIES: Chest pain Gastrointestinal: COMPLAINS OF: Abdominal pain, Diarrhea, Nausea, Vomiting, DENIES: Black stools, Bloody stools Genitourinary: DENIES: Urinary frequency, Hematuria, Dysuria Musculoskeletal: COMPLAINS OF: Back pain Integumentary: DENIES: Rash Hematologic/lymphatic: DENIES: Bruising, Lymphadenopathy Neurologic: DENIES: Headache Past Family Social History Past Medical History History of renal stones 4 years ago Past Surgical History None Reported Medications Reported Meds & Active Scripts Active Allergies: Coded Allergies: No Known Allergies (Unverified Adverse Reaction, Unknown, 01/04/18) Family History Stroke great grandmother Social History Lives here in [facility]. 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 Able to speak in full sentences and answer questions appropriately. SKIN: No rashes, ecchymoses. Numerous small, raised, nonerythematous nodules across patient's chest and back. HEAD: Atraumatic. Normocephalic. No temporal or scalp tenderness. EYES: Pupils equal round and reactive. Extraocular motions intact. No scleral icterus. No injection or drainage. ENT: Nose without bleeding, purulent drainage or septal hematoma. Throat without erythema, tonsillar hypertrophy or exudate. Uvula midline. Airway patent. NECK: Trachea midline. No JVD or lymphadenopathy. Supple, nontender, no meningeal signs. CARDIOVASCULAR: Regular rate and rhythm without murmurs, gallops, or rubs. RESPIRATORY: Clear to auscultation. Breath sounds equal bilaterally. No wheezes , rales, or rhonchi. GASTROINTESTINAL: Abdomen soft, nondistended. TTP in RLQ, LLQ, and suprapubic region. No hepato-splenomegaly, or palpable masses. No guarding. MUSCULOSKELETAL: Extremities without clubbing, cyanosis, or edema. No joint tenderness, effusion, or edema noted. No calf tenderness. Negative Homans sign bilaterally. No CVA tenderness. NEUROLOGICAL: Awake and alert. Cranial nerves II through XII intact. Motor and sensory grossly within normal limits. Five out of 5 muscle strength in all muscle groups. Normal speech. Laboratory Laboratory Tests Test 01/04/18 13:30 White Blood Count 7.4 Red Blood Count 4.73 Hemoglobin 14.8 Hematocrit 44.4 Mean Corpuscular Volume 94.1 Mean Corpuscular Hemoglobin 31.4 Mean Corpuscular Hemoglobin Concent 33.4 Red Cell Distribution Width 12.2 Platelet Count 221 Mean Platelet Volume 9.1 Neutrophils (%) (Auto) 88.2 Lymphocytes (%) (Auto) 6.3 Monocytes (%) (Auto) 5.2 Eosinophils (%) (Auto) 0.0 Basophils (%) (Auto) 0.3 Neutrophils # (Auto) 6.5 Lymphocytes # (Auto) 0.5 Monocytes # (Auto) 0.4 Eosinophils # (Auto) 0.0 Basophils # (Auto) 0.0 CBC Comment DIFF FINAL Differential Comment Blood Urea Nitrogen 10 Creatinine 1.01 Random Glucose 119 Total Protein 8.3 Albumin 4.4 Calcium Level 9.4 Alkaline Phosphatase 76 Aspartate Amino Transf (AST/SGOT) 31 Alanine Aminotransferase (ALT/SGPT) 43 Total Bilirubin 0.6 Sodium Level 136 Potassium Level 4.2 Chloride Level 103 Carbon Dioxide Level 23.6 Anion Gap 9 Estimat Glomerular Filtration Rate 107 Lipase 53 Result Diagram: 01/04/18 1330 01/04/18 1330 Imaging Last 48 hours Impressions Abdomen/Pelvis CT 01/04/18 1239 Signed Impressions: Service Date/Time: Thursday, January 04, 2018 14:41 - CONCLUSION: 1. 1.3 cm obstructing stone in the left proximal ureter with moderate to severe dilatation of the left collecting system. 2. Bilateral nonobstructing renal stones in the inferior collecting systems being larger on the left. MD Gabriel Noble VTE Risk Assessment Caprini VTE Risk Assessment: No/Low Risk (score <= 1) Caprini Risk Assessment Model Point Value = 1 Point Value = 2 Point Value = 3 Point Value = 5 Age 41-60 Minor surgery BMI > 25 kg/m2 Swollen legs Varicose veins or History of unexplained or recurrent spontaneous Oral contraceptives or hormone replacement Sepsis (< 1 month) Serious lung disease, including pneumonia (< 1 month) Abnormal pulmonary function Acute myocardial infarction Congestive heart failure (< 1 month) History of inflammatory bowel disease Medical patient at bed rest Age 61-74 Arthroscopic surgery Major open surgery (> 45 min) Laparoscopic surgery (> 45 min) Malignancy Confined to bed (> 72 hours) Immobilizing plaster cast Central venous access Age >= 75 History of VTE Family history of VTE Factor V Leiden Prothrombin [id number] Lupus anticoagulant Anticardiolipin antibodies Elevated serum homocysteine Heparin-induced thrombocytopenia Other congenital or acquired thrombophilia Stroke (< 1 month) Elective arthroplasty Hip, pelvis, or leg fracture Acute spinal cord injury (< 1 month) Prophylaxis Regimen Total Risk Factor Score Risk Level Prophylaxis Regimen 0-1 Low Early ambulation 2 Moderate Order ONE of the following: *Sequential Compression Device (SCD) *Heparin 5000 units SQ BID 3-4 Higher Order ONE of the following medications: *Heparin 5000 units SQ TID *Enoxaparin/Lovenox 40 mg SQ daily (WT < 150 kg, CrCl > 30 mL/min) *Enoxaparin/Lovenox 30 mg SQ daily (WT < 150 kg, CrCl > 10-29 mL/min) *Enoxaparin/Lovenox 30 mg SQ BID (WT < 150 kg, CrCl > 30 mL/min) AND/OR *Sequential Compression Device (SCD) 5 or more Highest Order ONE of the following medications: *Heparin 5000 units SQ TID (Preferred with Epidurals) *Enoxaparin/Lovenox 40 mg SQ daily (WT < 150 kg, CrCl > 30 mL/min) *Enoxaparin/Lovenox 30 mg SQ daily (WT < 150 kg, CrCl > 10-29 mL/min) *Enoxaparin/Lovenox 30 mg SQ BID (WT < 150 kg, CrCl > 30 mL/min) AND *Sequential Compression Device (SCD) Assessment and Plan Assessment and Plan 27-year-old male with history of kidney stone presenting to the ED with intractable nausea and vomiting. CT scan on admission significant for 1.3 cm obstructing stone in the left proximal ureter with moderate to severe dilation of the left collecting system. Also with bilateral nonobstructing renal stones in the inferior collecting systems. Consulting urology and admitting to the hospital with likely procedure pending Code Status Full code Discussed Condition With Dr. Sage Marshall Problem List: (1) Hydronephrosis due to obstruction of ureter ICD Codes: N13.2 - Hydronephrosis with renal and ureteral calculous obstruction Status: Acute Plan: CT scan on admission showing 1.3 cm obstructing stone in the left proximal ureter with moderate to severe dilation of the left collecting system. Also showing bilateral nonobstructing renal stones in the inferior collecting systems Consulting urology Received ciprofloxacin 1 in the ED Received 1 L bolus normal saline in the ED Making patient n.p.o. in anticipation of likely procedure, will follow urology' s recommendations (2) Intractable vomiting with nausea ICD Codes: R11.2 - Nausea with vomiting, unspecified Status: Acute Plan: Patient has had intractable vomiting over the last 24 hours Reports vomiting at least 20 times, some of which has been dark black Ordering Gastroccult to assess for a upper GI bleed Continue Zofran 4 mg IV as needed Consider adding Phenergan if he continues to have vomiting (3) Intractable abdominal pain ICD Codes: R10.9 - Unspecified abdominal pain Status: Acute Plan: Patient with significant abdominal/lower back pain secondary to obstructing renal stone Received Dilaudid 1 mg once in the ED Starting Toradol pain scale with morphine for breakthrough pain (4) FEN Plan: Received 1 L normal saline bolus in the ED, no continuous IV fluids at this time Electrolytes within normal limits, will replete as needed N.p.o. for now with anticipation of urologic procedure Low risk for DVT, no prophylaxis at this time Physician Certification 2 Midnight Certification Type: Admission for Inpatient Services Order for Inpatient Services The services are ordered in accordance with Medicare regulations or non- Medicare payer requirements, as applicable. In the case of services not specified as inpatient-only, they are appropriately provided as inpatient services in accordance with the 2-midnight benchmark. Estimated LOS (days): 2 days is the estimated time the patient will need to remain in the hospital, assuming treatment plan goals are met and no additional complications. Post-Hospital Plan: Home Problem Qualifiers (1) Intractable vomiting with nausea: Qualified Codes: R11.2 - Nausea with vomiting, unspecified Christian Lal MD R1 Jan 04, 2018 17:00
[2018-01-04 17:56] VITALS: BP 120/68; PULSE 85; RESP 18; O2SAT 99
[2018-01-04] MEDS: DOCUSATE SODIUM 50 MG/SENNA 8.6 MG TAB PO SCH (19:48)
[2018-01-04] MEDS: KETOROLAC TROMETHAMINE 30 MG/ML (IVP) VIAL IV PUSH PRN (19:48)
[2018-01-04] MEDS: SODIUM CHLORIDE 0.9% FLUSH 10 ML FLUSH IV FLUSH SCH (19:48)
[2018-01-04 20:00] VITALS: BP 121/58; PULSE 61; RESP 20; TEMP 98.1; O2SAT 95
[2018-01-05] VITALS: BP 106/51; PULSE 59; RESP 18; TEMP 98; O2SAT 98
[2018-01-05 04:00] VITALS: BP 121/61; PULSE 67; RESP 18; TEMP 98; O2SAT 100
[2018-01-05 06:28] LABS: BACTERIA, URINE RARE /hpf; BILIRUBIN, URINE NEG (NEG); BLOOD, URINE SMALL (NEG); GLUCOSE,URINE NEG (NEG); KETONE, URINE 10 mg/dL (NEG); MUCUS URINE FEW /lpf (OCC); NITRITE,URINE NEG (NEG); PH, URINE 5.5 (5.0-8.5); URINE COLOR YELLOW (YELLW/STRAW); URINE LEUKOCYTE ESTERASE SMALL (NEG); WHITE BLOOD CELL CLUMPS RARE
[2018-01-05] MEDS: SODIUM CHLOR 0.9% 1000 ML INJ 1,000 ML IV SCH ×3 (06:30→20:37)
[2018-01-05] MEDS: SODIUM CHLORIDE 0.9% FLUSH 10 ML FLUSH IV FLUSH SCH ×2 (07:19→20:50)
[2018-01-05] MEDS: KETOROLAC TROMETHAMINE 30 MG/ML (IVP) VIAL IV PUSH PRN ×2 (07:25→20:49)
[2018-01-05 07:58] LABS: AUTOMATED NEUTROPHIL # 1.5 TH/MM3 (1.8-7.7); BASOPHIL % 0.5 % (0.0-2.0); EOSINOPHIL % 0.1 % (0.0-4.0); HEMATOCRIT 41.8 % (39.0-51.0); HEMOGLOBIN 13.9 GM/DL (13.0-17.0); LYMPH % 36.6 % (9.0-44.0); LYMPHOCYTE # 1.5 TH/MM3 (1.0-4.8); MEAN CELL VOLUME 94.1 FL (80.0-100.0); MEAN CORPUSCULAR HEMOGLOBIN 31.2 PG (27.0-34.0); MEAN CORPUSCULAR HGB CONC 33.2 % (32.0-36.0); MEAN PLATELET VOLUME 9.1 FL (7.0-11.0); MONO % 24.5 % (0.0-8.0); NEUT % 38.3 % (16.0-70.0); PLATELET COUNT 207 TH/MM3 (150-450); RED BLOOD COUNT 4.44 MIL/MM3 (4.50-5.90); RED CELL DISTRIBUTION WIDTH 12.1 % (11.6-17.2)
[2018-01-05] MEDS: DOCUSATE SODIUM 50 MG/SENNA 8.6 MG TAB PO SCH ×2 (07:58→20:46)
[2018-01-05 08:00] VITALS: BP 107/59; PULSE 58; RESP 19; TEMP 98.1; O2SAT 99
[2018-01-05 08:22] LABS: BICARBONATE 26.1 MEQ/L (21.0-32.0); CALCIUM 8.6 MG/DL (8.5-10.1); CREATININE 1.07 MG/DL (0.60-1.30)
[2018-01-05] MEDS ORDERED: SODIUM CHLOR 0.9% 1000 ML INJ 1,000 ML IV ONE (09:30)
--- NOTE | 2018-01-05 09:55 | HHI.FPPN ---
Subjective Remarks No acute events overnight. Patient has not had any vomiting since admission. States his pain is improved from a 10 on admission to a 7 currently. Continues to have lower abdominal, low back pain. States he is hungry. Otherwise denies chest pain, shortness of breath. Discussion was had about the importance of hydration (Christian Lal MD R1) Objective Vitals Vital Signs Date Time Temp Pulse Resp B/P (MAP) Pulse Ox O2 Delivery O2 Flow Rate FiO2 01/05/18 08:00 98.1 58 19 107/59 (75) 99 01/05/18 04:00 98.0 67 18 121/61 (81) 100 01/05/18 00:00 98.0 59 18 106/51 (69) 98 01/04/18 22:14 20 01/04/18 20:00 98.1 61 20 121/58 (79) 95 01/04/18 17:56 85 18 120/68 (85) 99 01/04/18 12:04 97.6 69 18 121/81 (94) 99 I/O 01/04/18 01/04/18 01/04/18 01/05/18 01/05/18 01/05/18 07:00 15:00 23:00 07:00 15:00 23:00 Intake Total 1000 ml 0 ml Balance 1000 ml 0 ml Intake Oral 0 ml IV Total 1000 ml # Voids 0 # Bowel Movements 0 (Christian Lal MD R1) Result Diagram: 01/05/18 0643 01/05/18 0643 Objective Remarks GENERAL: This is a well-nourished, well-developed patient in no acute distress. Much more comfortable than prior exam. SKIN: No rashes, ecchymoses. Numerous small, raised, nonerythematous nodules across patient's chest and back. HEAD: Atraumatic. Normocephalic. No temporal or scalp tenderness. EYES: Pupils equal round and reactive. Extraocular motions intact. No scleral icterus. No injection or drainage. ENT: Nose without bleeding, purulent drainage or septal hematoma. Throat without erythema, tonsillar hypertrophy or exudate. Uvula midline. Airway patent. NECK: Trachea midline. No JVD or lymphadenopathy. Supple, nontender, no meningeal signs. CARDIOVASCULAR: Regular rate and rhythm without murmurs, gallops, or rubs. RESPIRATORY: Clear to auscultation. Breath sounds equal bilaterally. No wheezes , rales, or rhonchi. GASTROINTESTINAL: Abdomen soft, nondistended. Mildly TTP in suprapubic region. Improved from prior exam. No hepato-splenomegaly, or palpable masses. No guarding. MUSCULOSKELETAL: Extremities without clubbing, cyanosis, or edema. No joint tenderness, effusion, or edema noted. No calf tenderness. Negative Homans sign bilaterally. NEUROLOGICAL: Awake and alert. Cranial nerves II through XII intact. Motor and sensory grossly within normal limits. Five out of 5 muscle strength in all muscle groups. Normal speech (Christian Lal MD R1) A/P Assessment and Plan 27-year-old male with history of kidney stone presenting to the ED with intractable nausea and vomiting. CT scan on admission significant for 1.3 cm obstructing stone in the left proximal ureter with moderate to severe dilation of the left collecting system. Also with bilateral nonobstructing renal stones in the inferior collecting systems. Consulting urology and admitting to the hospital with likely procedure pending Discharge Planning Discharge pending urology evaluation. (Christian Lal MD R1) Attending Attestation Patient was seen and examined with the medicine team. Please refer to history and physical examination for this admission for additional historical details including past, family, social history and review of systems at the time of admission. This morning, he states that his pain is now 7-8 out of 10 whereas when he was admitted it was 10 out of 10. He has had no further vomiting since admission but notably has only had 1 void since admission. His pain is mostly now in his back. Does get some relief with Toradol. At the time we saw him, he had not yet been seen by urology. Physical exam findings are as noted in the resident note; I was present and performed the exam with the resident physicians. I agree with the plan as documented, and await recommendations from the urologist. Appreciate their assistance. (Pura Gardiner MD) Problem List: (1) Hydronephrosis due to obstruction of ureter ICD Codes: N13.2 - Hydronephrosis with renal and ureteral calculous obstruction Status: Acute Plan: CT scan on admission showing 1.3 cm obstructing stone in the left proximal ureter with moderate to severe dilation of the left collecting system. Also showing bilateral nonobstructing renal stones in the inferior collecting systems Consulted urology Received ciprofloxacin 1 in the ED Received 1 L bolus normal saline in the ED With minimal urinary output since admission, will give another 1 L bolus and give maintenance IV fluids at 110 mL/hr n.p.o. in anticipation of likely procedure, will follow urology's recommendations (2) Intractable vomiting with nausea ICD Codes: R11.2 - Nausea with vomiting, unspecified Status: Acute Plan: Patient has had intractable vomiting on admission Reported vomiting at least 20 times prior to admission, some of which has been dark black Ordered Gastroccult to assess for a upper GI bleed Nausea has currently resolved. No vomiting since admission Continue Zofran 4 mg IV as needed Consider adding Phenergan if he continues to have vomiting (3) Intractable abdominal pain ICD Codes: R10.9 - Unspecified abdominal pain Status: Acute Plan: Patient presented with significant abdominal/lower back pain secondary to obstructing renal stone Received Dilaudid 1 mg once in the ED Pain scale now at a 7 compared to 10 on admission Patient feels pain is much improved on Toradol, will continue with morphine available for breakthrough (4) FEN Plan: Received 1 L normal saline bolus in the ED, giving another 1 L bolus on with maintenance IV fluids at 110 mL/h Electrolytes within normal limits, will replete as needed N.p.o. for now with anticipation of urologic procedure Low risk for DVT, no prophylaxis at this time (Christian Lal MD R1) Problem Qualifiers (1) Intractable vomiting with nausea: Qualified Codes: R11.2 - Nausea with vomiting, unspecified Christian Lal MD R1 Jan 05, 2018 09:55 Pura Gardiner MD Jan 05, 2018 12:14
[2018-01-05 12:00] VITALS: BP 121/72; PULSE 61; RESP 18; TEMP 98; O2SAT 99
[2018-01-05] MEDS ORDERED: ceFAZolin INJ 1,000 MG VIAL IV ONE (12:00)
[2018-01-05] MEDS ORDERED: ONDANSETRON HCL 4 MG/2 ML VIAL IV ONE (12:00)
[2018-01-05] MEDS ORDERED: KETOROLAC TROMETHAMINE 30 MG/ML (IVP) VIAL IV PUSH ONE (12:00)
[2018-01-05] MEDS ORDERED: LIDOCAINE HCL 1% PF 5 ML SYRINGE OTHER ONE (12:00)
[2018-01-05] MEDS ORDERED: PROPOFOL 200 MG/20 ML AMP IV ONE (12:00)
--- NOTE | 2018-01-05 16:29 | EKG ---
Date Performed: 01/05/2018 Time Performed: 15:36:24 PTAGE: 27 years EKG: SINUS BRADYCARDIA BORDERLINE ECG Compared to prior electrocardiogram, rate has decreased PREVIOUS TRACING : 03/04/1997 11.38 DOCTOR: Bradly Dickens Interpretating Date/Time 01/05/2018 16:28:09
--- NOTE | 2018-01-05 17:14 | PD.CONS ---
[facility] Service Urology Consult Requested By Dr. Young Reason for Consult Obstructing left proximal ureteral calculus Primary Care Physician No Primary Care Physician Diagnosis: History of Present Illness 27-year-old gentleman with history nephrolithiasis who presented to the emergency room yesterday complaining of nausea vomiting and significant left flank pain. Workup included a CT scan stone protocol that demonstrated a 1.3 cm obstructing left proximal ureteral calculus with hydronephrosis. Also noted were bilateral smaller renal calculi. The patient reports his last stone episode was approximately 4 years ago which resolved spontaneously. He denies any prior urologic surgery procedures or stents. At the time of consultation the patient was resting comfortably and pain well managed. Review of Systems Constitutional: DENIES: Fever, Chills Cardiovascular: DENIES: Chest pain Gastrointestinal: COMPLAINS OF: Abdominal pain (Left side), Nausea, Vomiting Genitourinary: DENIES: Hematuria, Dysuria Musculoskeletal: COMPLAINS OF: Back pain (Left flank) Except as stated in HPI: all other systems reviewed are Neg Past Family Social History Past Medical History Nephrolithiasis Past Surgical History Denies Reported Medications Refer to EMR Allergies: Coded Allergies: No Known Allergies (Unverified Adverse Reaction, Unknown, 01/04/18) Active Ordered Medications Refer to EMR Family History Reviewed and noncontributory Social History Smokes 2 cigars daily 10 years Occasional alcohol use Denies intravenous drug abuse history Physical Exam Vital Signs Date Time Temp Pulse Resp B/P (MAP) Pulse Ox O2 Delivery O2 Flow Rate FiO2 01/05/18 12:00 98.0 61 18 121/72 (88) 99 01/05/18 08:00 98.1 58 19 107/59 (75) 99 01/05/18 04:00 98.0 67 18 121/61 (81) 100 01/05/18 00:00 98.0 59 18 106/51 (69) 98 01/04/18 22:14 20 01/04/18 20:00 98.1 61 20 121/58 (79) 95 01/04/18 17:56 85 18 120/68 (85) 99 Physical Exam GENERAL: This is a well-nourished, well-developed patient, in no apparent distress. SKIN: No rashes, ecchymoses or lesions. Cool and dry. HEAD: Atraumatic. Normocephalic. No temporal or scalp tenderness. EYES: Pupils equal round and reactive. Extraocular motions intact. No scleral icterus. No injection or drainage. ENT: Nose without bleeding, purulent drainage or septal hematoma. Throat without erythema, tonsillar hypertrophy or exudate. Uvula midline. Airway patent. NECK: Trachea midline. No JVD or lymphadenopathy. Supple, nontender, no meningeal signs. CARDIOVASCULAR: Regular rate and rhythm without murmurs, gallops, or rubs. RESPIRATORY: Clear to auscultation. Breath sounds equal bilaterally. No wheezes , rales, or rhonchi. GASTROINTESTINAL: Abdomen soft, non-tender, nondistended. No hepato-splenomegaly , or palpable masses. No guarding. GENITOURINARY: No CVA tenderness, bladder not distended MUSCULOSKELETAL: Extremities without clubbing, cyanosis, or edema. No joint tenderness, effusion, or edema noted. No calf tenderness. Negative Homans sign bilaterally. NEUROLOGICAL: Awake and alert. Cranial nerves II through XII intact. Motor and sensory grossly within normal limits. Five out of 5 muscle strength in all muscle groups. Normal speech. Lab results reviewed: Yes Laboratory Tests Test 01/05/18 05:40 01/05/18 06:43 Urine Color YELLOW Urine Turbidity CLEAR Urine pH 5.5 Urine Specific [place] 1.050 Urine Protein 30 Urine Glucose (UA) NEG Urine Ketones 10 Urine Occult Blood SMALL Urine Nitrite NEG Urine Bilirubin NEG Urine Urobilinogen LESS THAN 2.0 Urine Leukocyte Esterase SMALL Urine RBC 15 Urine WBC 16 Urine WBC Clumps RARE Urine Bacteria RARE Urine Mucus FEW Microscopic Urinalysis Comment CULTURE INDICATED White Blood Count 4.0 Red Blood Count 4.44 Hemoglobin 13.9 Hematocrit 41.8 Mean Corpuscular Volume 94.1 Mean Corpuscular Hemoglobin 31.2 Mean Corpuscular Hemoglobin Concent 33.2 Red Cell Distribution Width 12.1 Platelet Count 207 Mean Platelet Volume 9.1 Neutrophils (%) (Auto) 38.3 Lymphocytes (%) (Auto) 36.6 Monocytes (%) (Auto) 24.5 Eosinophils (%) (Auto) 0.1 Basophils (%) (Auto) 0.5 Neutrophils # (Auto) 1.5 Lymphocytes # (Auto) 1.5 Monocytes # (Auto) 1.0 Eosinophils # (Auto) 0.0 Basophils # (Auto) 0.0 CBC Comment DIFF FINAL Differential Comment Blood Urea Nitrogen 15 Creatinine 1.07 Random Glucose 86 Calcium Level 8.6 Sodium Level 140 Potassium Level 3.8 Chloride Level 105 Carbon Dioxide Level 26.1 Anion Gap 9 Estimat Glomerular Filtration Rate 100 Date/Time Source Procedure Growth Status 01/05/18 05:40 Urine Clean Catch Urine Culture Pending Received Result Diagram: 01/05/18 0643 01/05/18 0643 Personally reviewed images: Yes Imaging Last Impressions Abdomen/Pelvis CT 01/04/18 1239 Signed Impressions: Service Date/Time: Thursday, January 04, 2018 14:41 - CONCLUSION: 1. 1.3 cm obstructing stone in the left proximal ureter with moderate to severe dilatation of the left collecting system. 2. Bilateral nonobstructing renal stones in the inferior collecting systems being larger on the left. Onesimo Perez MD Assessment and Plan Assessment and Plan Urologic impression: 1. Obstructing 1.3 cm left proximal ureteral calculus with hydronephrosis 2. Bilateral renal calculi Plan: 1. Keep patient n.p.o. 2. Bring the patient to the OR suite later today for cystoscopy, left retrograde pyelogram and left ureteral stent placement 3. Will eventually require outpatient extracorporeal shockwave lithotripsy Douglas Kwon MD Jan 05, 2018 17:13
[2018-01-05] MEDS ORDERED: diphenhydrAMINE HCL 50 MG/ML VIAL ONE (17:57)
--- NOTE | 2018-01-05 18:26 | PD.OP ---
Operative Report Date of Surgery: Jan 05, 2018 Preoperative Diagnosis: (1) Ureteral calculus, left Postoperative Diagnosis: (1) Ureteral calculus, left Procedure: Cystoscopy, left retrograde pyelogram and left ureteral stent placement Anesthesia: General Surgeon: Douglas Kwon Package Dyer(s): None Operation and Findings: Indication for procedures: Case of a pleasant 19-year-old gentleman with a 1.3 cm obstructing left proximal ureteral calculus. Operative procedure in detail: Patient was brought to the operating room suite and placed supine on the OR table. He was then placed under general anesthesia. He was then repositioned in the dorsolithotomy position and prepped and draped in normal sterile fashion. After an appropriate timeout was undertaken I proceeded with cystoscopic evaluation utilizing the rigid cystoscope with the 20 [place] sheath and 30 lens. The urethra was patent without stricture formation. The prostatic urethra was not obstructing. Further passive cystoscope within urinary bladder revealed both right and left ureteral orifices to be in correct anatomic position. There was clear drainage of urine on the right side and none noted on the left. A 6 [place] open-ended ureteral catheter was utilized and a left retrograde Polygram study was performed to outline the collecting system. A sensor 0.035 wire was then advanced through the open-ended catheter up and around the proximal left ureteral stone and further advanced into the left renal pelvis. An attempt was made to miniplate the stone up the left renal pelvis with the open-ended catheter without success. The open-ended catheter was then exchanged for a 6 [place] 26 cm Sangrey stent. The stent was passed on the both cystoscopic and fluoroscopic guidance without difficulty. Once the stent was in proper position the trailing string was removed. There was some oozing of blood after the stent was placed and thus the decision was made to place a Suazo catheter. A 16 K[place] 10 cc Suazo catheter was placed and connected to gravity drainage. The patient tolerated the procedures without complications and was transferred to the PACU in satisfactory condition. Douglas Kwon MD Jan 05, 2018 18:26
[2018-01-05] MEDS ORDERED: PERC5TAB12 PO (18:29)
[2018-01-05] MEDS ORDERED: CEPH-460 PO (18:29)
[2018-01-05] MEDS ORDERED: DO NOT ADM ANY ANTICOAGULANT DRUGS PRN (19:00)
[2018-01-05 20:44] VITALS: BP 115/74; PULSE 67; RESP 18; TEMP 98.1; O2SAT 99
[2018-01-05] MEDS: CEPHALEXIN MONOHYDRATE 500 MG CAP PO SCH (20:46)
[2018-01-05] MEDS: MORPHINE SULFATE 4 MG/ML INJ IV PUSH PRN (22:48)
[2018-01-06] MEDS: SODIUM CHLOR 0.9% 1000 ML INJ 1,000 ML IV SCH ×2 (03:17→11:20)
[2018-01-06] MEDS: CEPHALEXIN MONOHYDRATE 500 MG CAP PO SCH (05:06)
[2018-01-06] MEDS: KETOROLAC TROMETHAMINE 30 MG/ML (IVP) VIAL IV PUSH PRN (05:15)
[2018-01-06 05:16] LABS: AUTOMATED NEUTROPHIL # 1.6 TH/MM3 (1.8-7.7); BASOPHIL % 0.6 % (0.0-2.0); EOSINOPHIL % 0.3 % (0.0-4.0); HEMATOCRIT 38.7 % (39.0-51.0); LYMPH % 41.4 % (9.0-44.0); LYMPHOCYTE # 1.8 TH/MM3 (1.0-4.8); MEAN CELL VOLUME 94.1 FL (80.0-100.0); MEAN CORPUSCULAR HEMOGLOBIN 31.6 PG (27.0-34.0); MEAN CORPUSCULAR HGB CONC 33.6 % (32.0-36.0); MEAN PLATELET VOLUME 8.2 FL (7.0-11.0); MONOCYTE # 0.9 TH/MM3 (0-0.9); NEUT % 36.7 % (16.0-70.0); PLATELET COUNT 185 TH/MM3 (150-450); RED BLOOD COUNT 4.11 MIL/MM3 (4.50-5.90); WHITE BLOOD COUNT 4.4 TH/MM3 (4.0-11.0)
[2018-01-06 05:41] LABS: BICARBONATE 25.8 MEQ/L (21.0-32.0); CALCIUM 7.9 MG/DL (8.5-10.1)
[2018-01-06] MEDS: SODIUM CHLORIDE 0.9% FLUSH 10 ML FLUSH IV FLUSH SCH (07:54)
[2018-01-06] MEDS: DOCUSATE SODIUM 50 MG/SENNA 8.6 MG TAB PO SCH (07:54)
[2018-01-06 08:00] VITALS: BP 106/58; PULSE 59; RESP 16; TEMP 97.9; O2SAT 100
[2018-01-06] MEDS: MORPHINE SULFATE 4 MG/ML INJ IV PUSH PRN (08:00)
--- NOTE | 2018-01-06 09:56 | HHI.FPPN ---
Subjective Remarks Pt seen and examined this morning. No acute events overnight. Pt tolerated procedure well yesterday. Catheter was pulled this morning. No urination since. Eating and drinking without nausea/vomiting. Pain much improved. Denies any chest pain, SOB, leg pain. (Moises Marshall MD R2) Objective Vitals Vital Signs Date Time Temp Pulse Resp B/P (MAP) Pulse Ox O2 Delivery O2 Flow Rate FiO2 01/06/18 08:00 97.9 59 16 106/58 (74) 100 01/06/18 06:43 20 01/05/18 23:13 20 01/05/18 20:44 98.1 67 18 115/74 (88) 99 01/05/18 18:50 98.4 65 16 139/90 (106) 98 Room Air 01/05/18 18:40 60 18 145/84 (104) 99 Room Air 01/05/18 18:30 98.4 80 17 133/82 (99) 98 Room Air 01/05/18 12:00 98.0 61 18 121/72 (88) 99 I/O 01/05/18 01/05/18 01/05/18 01/06/18 01/06/18 01/06/18 07:00 15:00 23:00 07:00 15:00 23:00 Intake Total 0 ml 1000 ml 600 ml Output Total 800 ml Balance 0 ml 1000 ml 600 ml -800 ml Intake Oral 0 ml IV Total 1000 ml 600 ml Output Urine Total 800 ml # Voids 0 # Bowel Movements 0 (Moises Marshall MD R2) Result Diagram: 01/06/18 0502 01/06/18 0502 Imaging Last Impressions Abdomen/Pelvis CT 01/04/18 1239 Signed Impressions: Service Date/Time: Thursday, January 04, 2018 14:41 - CONCLUSION: 1. 1.3 cm obstructing stone in the left proximal ureter with moderate to severe dilatation of the left collecting system. 2. Bilateral nonobstructing renal stones in the inferior collecting systems being larger on the left. Onesimo Perez MD Objective Remarks GENERAL: This is a well-nourished, well-developed patient in no acute distress. CARDIOVASCULAR: Regular rate and rhythm without murmurs, gallops, or rubs. RESPIRATORY: Clear to auscultation. Breath sounds equal bilaterally. No wheezes , rales, or rhonchi. GASTROINTESTINAL: Abdomen soft, nondistended. Mildly TTP in suprapubic region. Improved from prior exam. MUSCULOSKELETAL: Extremities without clubbing, cyanosis, or edema. NEUROLOGICAL: Awake and alert. Motor and sensory grossly within normal limits. Normal speech (Moises Marshall MD R2) A/P Assessment and Plan 27-year-old male with history of kidney stone presenting to the ED with intractable nausea and vomiting. CT scan on admission significant for 1.3 cm obstructing stone in the left proximal ureter with moderate to severe dilation of the left collecting system. Also with bilateral nonobstructing renal stones in the inferior collecting systems. Consulting urology and admitting to the hospital with likely procedure pending Discharge Planning Discharge today (Moises Marshall MD R2) Attending Attestation Patient was discharged and left the hospital prior to being seen by me today. Case reviewed and discussed with the resident team. Agree with plan of care as discussed with me and documented in the resident note. (Pura Gardiner MD) Problem List: (1) Hydronephrosis due to obstruction of ureter ICD Codes: N13.2 - Hydronephrosis with renal and ureteral calculous obstruction Status: Acute Plan: CT scan on admission showing 1.3 cm obstructing stone in the left proximal ureter with moderate to severe dilation of the left collecting system. Also showing bilateral nonobstructing renal stones in the inferior collecting systems Consulted urology -POD#1 from cystoscopy/pyelogram and stent placement -Cleared for discharge -F/u outpatient for shockwave lithotripsy -Started on Keflex Continue adequate oral intake (2) Intractable vomiting with nausea ICD Codes: R11.2 - Nausea with vomiting, unspecified Status: Resolved Plan: Patient has had intractable vomiting on admission Reported vomiting at least 20 times prior to admission, some of which has been dark black Ordered Gastroccult to assess for a upper GI bleed Nausea has currently resolved. No vomiting since admission Continue Zofran 4 mg IV as needed Consider adding Phenergan if he continues to have vomiting (3) Intractable abdominal pain ICD Codes: R10.9 - Unspecified abdominal pain Status: Resolved Plan: Patient presented with significant abdominal/lower back pain secondary to obstructing renal stone Received Dilaudid 1 mg once in the ED Pain improved Patient feels pain is much improved on Toradol, will continue with morphine available for breakthrough (4) FEN Plan: Maintenance IV fluids at 110 mL/h Electrolytes within normal limits, will replete as needed Regular diet Low risk for DVT, no prophylaxis at this time (Moises Marshall MD R2) Problem Qualifiers (1) Intractable vomiting with nausea: Qualified Codes: R11.2 - Nausea with vomiting, unspecified Moises Marshall MD R2 January 06, 2018 09:56 Pura Gardiner MD January 06, 2018 14:13
--- NOTE | 2018-01-06 09:58 | HHI.DCPOC ---
Discharge Care Plan Diagnosis: (1) Kidney stone on left side (2) Hydronephrosis due to obstruction of ureter (3) Intractable vomiting with nausea (4) Intractable abdominal pain Goals to Promote Your Health * To prevent worsening of your condition and complications * To maintain your health at the optimal level Directions to Meet Your Goals Take your medications as prescribed Follow your dietary instruction Follow activity as directed Keep your appointments as scheduled Take your immunizations and boosters as scheduled If your symptoms worsen call your PCP, if no PCP go to Urgent Care Center or Emergency Room Smoking is Dangerous to Your Health. Avoid second hand smoke Call the 24-hour hour crisis hotline for domestic abuse at Moises Marshall MD R2 January 06, 2018 09:58
--- NOTE | 2018-01-06 10:33 | HHI.DS ---
Discharge Summary Admission Date Jan 04, 2018 at 16:43 Discharge Date: January 06, 2018 Admitting Diagnosis intract vomiting and pain from kidney stone, severe hydronephrosis (1) Hydronephrosis due to obstruction of ureter Diagnosis: Principal Plan: CT scan on admission showing 1.3 cm obstructing stone in the left proximal ureter with moderate to severe dilation of the left collecting system. Also showing bilateral nonobstructing renal stones in the inferior collecting systems Consulted urology -POD#1 from cystoscopy/pyelogram and stent placement -Cleared for discharge -F/u outpatient for shockwave lithotripsy -Started on Keflex Continue adequate oral intake ICD Codes: N13.2 - Hydronephrosis with renal and ureteral calculous obstruction Status: Acute (2) Intractable vomiting with nausea Diagnosis: Secondary Plan: Patient has had intractable vomiting on admission Reported vomiting at least 20 times prior to admission, some of which has been dark black Ordered Gastroccult to assess for a upper GI bleed Nausea has currently resolved. No vomiting since admission Continue Zofran 4 mg IV as needed Consider adding Phenergan if he continues to have vomiting ICD Codes: R11.2 - Nausea with vomiting, unspecified Status: Resolved (3) Intractable abdominal pain Diagnosis: Secondary Plan: Patient presented with significant abdominal/lower back pain secondary to obstructing renal stone Received Dilaudid 1 mg once in the ED Pain improved Patient feels pain is much improved on Toradol, will continue with morphine available for breakthrough ICD Codes: R10.9 - Unspecified abdominal pain Status: Resolved (4) FEN Diagnosis: Secondary Plan: Maintenance IV fluids at 110 mL/h Electrolytes within normal limits, will replete as needed Regular diet Low risk for DVT, no prophylaxis at this time Consultants Urology Procedures Left ureteral stent Brief History 27 yo M presenting to ED with intractable nausea and vomiting. He states he starting having body aches, chills on day prior to admission. At 0330 day of admission starting having nausea and vomiting >20 times. Describes the vomitus as black. Also complaining of lower abdominal and low back pain. On day prior to admission he was working outdoors and drinking beer (6 beers total). Has a history of renal stones, last had one 4 years ago and did not undergo surgery at that time. Also endorses diarrhea for last 3 days. Denies hematuria, dysuria , foul odor to urine. CBC/BMP: 01/06/18 0502 01/06/18 0502 Significant Findings Laboratory Tests Test 01/04/18 13:30 01/05/18 05:40 01/05/18 06:43 01/06/18 05:02 Neutrophils (%) (Auto) 88.2 % (16.0-70.0) Lymphocytes (%) (Auto) 6.3 % (9.0-44.0) Lymphocytes # (Auto) 0.5 TH/MM3 (1.0-4.8) Random Glucose 119 MG/DL (74-106) Total Protein 8.3 GM/DL (6.4-8.2) Lipase 53 U/L (73-393) Urine Specific [place] 1.050 (1.002-1.035) Urine Protein 30 mg/dL (NEG-TRACE) Urine Ketones 10 mg/dL (NEG) Urine Occult Blood SMALL (NEG) Urine Leukocyte Esterase SMALL (NEG) Urine RBC 15 /hpf (0-3) Urine WBC 16 /hpf (0-5) Urine WBC Clumps RARE (NONE) Urine Bacteria RARE /hpf (NONE) Urine Mucus FEW /lpf (OCC) Red Blood Count 4.44 MIL/MM3 (4.50-5.90) 4.11 MIL/MM3 (4.50-5.90) Monocytes (%) (Auto) 24.5 % (0.0-8.0) 21.0 % (0.0-8.0) Neutrophils # (Auto) 1.5 TH/MM3 (1.8-7.7) 1.6 TH/MM3 (1.8-7.7) Monocytes # (Auto) 1.0 TH/MM3 (0-0.9) Hematocrit 38.7 % (39.0-51.0) Calcium Level 7.9 MG/DL (8.5-10.1) Chloride Level 109 MEQ/L (98-107) PE at Discharge GENERAL: This is a well-nourished, well-developed patient in no acute distress. CARDIOVASCULAR: Regular rate and rhythm without murmurs, gallops, or rubs. RESPIRATORY: Clear to auscultation. Breath sounds equal bilaterally. No wheezes , rales, or rhonchi. GASTROINTESTINAL: Abdomen soft, nondistended. Mildly TTP in suprapubic region. Improved from prior exam. MUSCULOSKELETAL: Extremities without clubbing, cyanosis, or edema. NEUROLOGICAL: Awake and alert. Motor and sensory grossly within normal limits. Normal speech Hospital Course 19-year-old male presents with back pain, chills, nausea vomiting. Found to have left ureteral calculus with blockage and hydronephrosis. Urology was consulted. Patient was started on Toradol for pain medications as well as pain for nausea. Patient went the next day to the OR for cystoscopy, left retrograde pyelogram, and left ureteral stent placement. Patient's pain and nausea significantly improved after procedure. Catheter was removed the next day and patient voided spontaneously. Patient to follow-up with urologist and continue Keflex upon discharge. Patient discharged in stable condition. Pt Condition on Discharge: Stable Discharge Disposition: Discharge Home Discharge Instructions DIET: Follow Instructions for: As Tolerated, No Restrictions Activities you can perform: Regular-No Restrictions Follow up Referrals: PCP Follow-up - 1 Week Urology - 1 Week with Douglas Kwon MD New Medications: Cephalexin (Keflex) 500 Mg Cap 500 MG PO Q8H for Infection, #15 CAP 0 Refills Oxycodone-Acetaminophen (Percocet) 5-325 mg Tab 1-2 TAB PO Q6H PRN for PAIN, #30 TAB 0 Refills Moises Marshall MD R2 January 06, 2018 10:33
== END 2018-01-06 12:00 | disposition home or self-care (01) | DRG 694 ==
LOC: NEPD 11:59 → NEDA 16:43 → N07A 18:55
PROVIDERS: ADMIT Family Medicine; ATTEND Family Medicine
PROC: 0T778DZ Dilation of Left Ureter with Intraluminal Device, Via Natural or Artificial Opening Endoscopic (ICD-10-PCS; principal; 2018-01-05 17:45)
DX: N13.2 Hydronephrosis with renal and ureteral calculous obstruction (principal); F17.290 Nicotine dependence, other tobacco product, uncomplicated; F12.90 Cannabis use, unspecified, uncomplicated
CPT/HCPCS: 74177; 74420; 80048; 80053; 81001; 83690; 85025; 87086; 93005; 96361; 96374; 96375; 96376; C1769; J0690; J0744; J1170; J1200; J1885; J2270; J2405; J3010; J7030; Q9967

== ENCOUNTER 2018-01-26 11:46 | Emergency (ER) | payer OTHER ==
[~2018-01-26] VITALS: Ht 177.8 cm; Wt 82.0 kg
[~2018-01-26 11:46] MED LIST changes: +CEPH-460 PO; -FLUT1SPR5 EACH NARE; -IBUP1TAB7 PO; +PERC5TAB12 PO; -ZOFR4TAB3 SL
[2018-01-26 12:27] VITALS: BP 109/76; PULSE 78; RESP 20; TEMP 98.3; O2SAT 100
[2018-01-26] MEDS ORDERED: SILVER SULFADIAZINE 1% CR 50 GM JAR TOPICAL ONE (13:30)
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
[2018-01-26] MEDS ORDERED: IBUP-232 PO (13:44)
[2018-01-26] MEDS ORDERED: SILV1CRE20 TOPICAL (14:21)
--- NOTE | 2018-01-26 15:17 | RADRPT ---
EXAM DATE/TIME: 01/26/2018 13:52 [facility] COMPARISON: No previous studies available for comparison. INDICATIONS : Abdominal pain. Recent left urethral stent placed. MEDICAL HISTORY : None. SURGICAL HISTORY : Urethral stent. ENCOUNTER: Initial ACUITY: 4 - 6 days PAIN SCORE: 10/10 LOCATION: Abdomen. FINDINGS: Supine view of the abdomen was performed. The abdominal bowel gas pattern is normal. Left-sided doub le J stent. Cluster of stones adjacent to the stent at the level of L3 with a total diameter of appro ximately 7.4 mm. Suggestion of a smaller stone more cephalad measuring approximately 3-4 mm in diamet er. Multiple phleboliths in the deep pelvis CONCLUSION: 1. Left-sided double J stent. Multiple ureteric stones at the level of L3 as detailed above. 2. Multiple phleboliths in the deep pelvis. Nonobstructive bowel gas pattern Charles Vines MD on January 26, 2018 at 15:13 Board Certified Radiologist. This report was verified electronically.
== END 2018-01-26 14:28 | disposition home or self-care (01) ==
LOC: NEPK 11:46
DX: S50.812A Abrasion of left forearm, initial encounter (principal); S50.811A Abrasion of right forearm, initial encounter; S80.211A Abrasion, right knee, initial encounter; R31.9 Hematuria, unspecified; V29.9XXA Motorcycle rider (driver) (passenger) injured in unspecified traffic accident, initial encounter; Y92.410 Unspecified street and highway as the place of occurrence of the external cause
CPT/HCPCS: 74018; 99283

== ENCOUNTER 2018-02-20 16:15 | Emergency (ER) | payer SELFPAY ==
[~2018-02-20] VITALS: Ht 180.3 cm; Wt 82.0 kg
[~2018-02-20 16:15] MED LIST changes: +IBUP-232 PO; +SILV1CRE20 TOPICAL
[2018-02-20 16:30] VITALS: BP 113/71; PULSE 75; RESP 18; TEMP 98; O2SAT 97
[2018-02-20] MEDS ORDERED: CEPHALEXIN MONOHYDRATE 500 MG CAP PO ONE (17:45)
[2018-02-20] MEDS ORDERED: IBUPROFEN 800 MG TAB PO ONE (17:45)
[2018-02-20] MEDS ORDERED: SULFAMETHOXAZOLE-TRIMETHOPRIM DS 800-160 MG TAB PO ONE (17:45)
[2018-02-20] MEDS ORDERED: BACT800T5 PO (17:46)
[2018-02-20] MEDS ORDERED: CEPH-460 PO (17:46)
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
== END 2018-02-20 18:37 | disposition home or self-care (01) ==
LOC: NEPD 16:15
DX: L02.511 Cutaneous abscess of right hand (principal); Z72.0 Tobacco use
CPT/HCPCS: 10060; 86403; 87070; 87186; 87205